=== PATIENT | female | born 1955 | race Hispanic/Latino ===

== ENCOUNTER 2017-05-18 15:23 | Observation (INO) | payer MEDICARE ==
[2017-05-18 15:51] LABS: #Basophils 0.1 thou/uL (0.0-0.2); #Eosinphils 0.3 thou/uL (0.0-0.7); #Lymphocytes 2.7 thou/uL (1.20-3.40); #Monocytes 0.7 thou/uL (0.11-0.59); #Neutrophils 6.7 thou/uL (1.40-6.50); %Basophils 0.5 % (0.0-1.0); %Eosinophils 2.7 % (0.0-10.0); %Lymphocytes 25.9 % (21.0-51.0); %Monocytes 6.8 % (0.0-10.0); Mean Platelet Volume 8.5 fL (7.4-10.4); Red Blood Cell (RBC) Count 3.84 mill/uL (4.20-5.40); White Blood Cell (WBC) Count 10.5 thou/uL (4.8-10.8)
[2017-05-18 16:05] LABS: ALT (SGPT) 14 U/L (8-55); AST (SGOT) 15 U/L (5-34); Alkaline Phosphatase 116 U/L (40-150); Anion Gap 14 mmol/L (10-20); BUN (Urea Nitrogen) 21 mg/dL (9.8-20.1); Bilirubin, Total 0.3 mg/dL (0.2-1.2); CK (CPK) 70 U/L (29-168); Calc. Creatinine Clearance 0 mL/min (70-130); Calcium 9.4 mg/dL (7.8-10.44); Carbon Dioxide 23 mmol/L (22-29); Chloride 109 mmol/L (98-107); Estimated GFR-MDRD 51; Globulin 3.1 g/dL (2.4-3.5); Lipase 50 U/L (8-78)
[2017-05-18 16:09] LABS: Troponin I Less than 0.010 ng/mL (< 0.028)
[2017-05-18] MEDS ORDERED: Ketorolac Tromethamine 30 MG/ML VIAL ONE (17:09)
--- NOTE | 2017-05-18 19:08 | RAD ---
AP CHEST: Indication: Left sided chest pain. Comparison: 08-27-16 IMPRESSION: No acute cardiopulmonary abnormality. The examination is not appreciably changed from a comparison s tudy. POS: [facility]
[2017-05-18 20:17] LABS: Troponin I Less than 0.010 ng/mL (< 0.028)
[2017-05-18] MEDS ORDERED: Ondansetron ODT 4 MG TAB SL PRN (20:36)
[2017-05-18] MEDS ORDERED: Ondansetron HCl/PF 4 MG/2 ML Vial IVP PRN (20:36)
[2017-05-18] MEDS ORDERED: traZODone HCl 50 MG TAB PO PRN (21:20)
[2017-05-18] MEDS ORDERED: Nitroglycerin 0.4 MG TAB (25 Tab Bottle) PO PRN (21:20)
[2017-05-18] MEDS ORDERED: Acetaminophen 500 MG TAB PO PRN (21:20)
[2017-05-18 21:25] VITALS: BMI 32.1
[2017-05-18] MEDS ORDERED: Diabetic Tussin 200 MG/10 ML UDCUP PO PRN (23:19)
--- NOTE | 2017-05-19 02:04 | ADD-HP ---
DATE OF ADMISSION: 05/18/2017 ATTENDING: Yuki Li D.O. RESIDENT: MD Dr. Erickson Angel's H and P reviewed and case discussed at length. Pertinent portions of the history and p hysical repeated by myself. I agree with her assessment and plan with following addendum: Ms. Maurice is a 62-year-old female with past medical history of hypertension and hyperlipid emia, who presented to the ER today with chest pain. Workup has shown EKG to be normal with the exc eption of a long QT, which was present on previous EKG as well as cardiac enzymes are negative x3. Physical exam is concerning only for costochondritis. Chest x-ray is unremarkable. During my exam, she does not endorse any further pain and is quite comfortable. On arrival, her blood pressures we re significantly elevated and they are improved now. Her most recent vital signs were 161/70. She has a HEART score of 4 and as such will be placed under observation and administered a stress test i n the morning to evaluate further for possible cardiac ischemia. Her blood pressure will be control led by restarting her home blood pressure medications as well as with IV p.r.n. medications as neede d. We will continue her aspirin and statin.
--- NOTE | 2017-05-19 04:26 | HP-2 ---
DATE OF ADMISSION: 05/18/2017 CODE STATUS: FULL CODE. PRIMARY CARE PHYSICIAN: Ed humphries. Jen PCP ATTENDING: Dr. Yuki Li RESIDENT: Dr. Radha Bentley, PGY1 HISTORIAN: The patient. CHIEF COMPLAINT: Chest pain, cough/fever and upper respiratory infection. HISTORY OF PRESENT ILLNESS: This is a 62-year-old female with past medical history of hypertension, hyperlipidemia, who presents with sharp chest pain that is localized to the right and left chest, does not radiate, not worsened by exertion, comes and goes and lasts for about 10 minutes, worsening over the past several months. The patient also endorses a cough and congestion and subjective fever since Friday. Endorses sputum that is green with a cough. ER: The patient was given Toradol. PAST MEDICAL HISTORY: Hypertension, hyperlipidemia, GERD, OA, and peptic ulcer disease. PAST SURGICAL HISTORY: Denies. ALLERGIES: PENICILLIN. MEDICATIONS: Losartan 25 mg daily, aspirin 81 mg daily, Protonix 40 mg daily, atorvastatin 40 mg daily. FAMILY HISTORY: Denies. SOCIAL HISTORY: Tobacco; [id number] smoking history. Alcohol, occasionally drinks at parties. Drugs: No drug use reported. REVIEW OF SYSTEMS: GENERAL: Denies weight changes, appetite, sleep changes. Endorses fevers. EYES: Denies vision changes and eye pain. RESPIRATORY: Endorses cough, congestion, and shortness of breath with exertion. CARDIOVASCULAR: Endorses chest pain. Denies palpitations, edema, paroxysmal nocturnal dyspnea and orthopnea. GI: Denies nausea, vomiting, diarrhea, constipation, abdominal pain. Denies GI bleeding. Denies melena. GENITOURINARY: Denies incontinence, dysuria. SKIN: Denies rashes or lesions. MUSCULOSKELETAL: Denies pain, tenderness and stiffness. NEURO: Denies weakness, numbness, and syncope. Endorses tingling in the bilateral lower extremities. PSYCH: Denies anxiety and depression. PHYSICAL EXAMINATION: VITAL SIGNS: Blood pressure 180/72, pulse of 68, respiratory rate 20, T-max 98.4, pulse ox 97% on room air. GENERAL: Alert and oriented x3, in no apparent distress, well-developed, well- nourished, appropriately interactive. EYES: Pupils equal, round, and reactive to light and accommodation. Extraocular muscles intact. Conjunctivae within normal limits. ENT: Nasal mucosa within normal limits. Oropharynx within normal limits. NECK: Supple, no lymphadenopathy, no thyromegaly. CARDIOVASCULAR: Regular rate and rhythm. Diastolic heart murmur 2/6. No gallops appreciated. Radial and pedal pulses 2+ bilaterally. RESPIRATORY: Normal effort, no retractions. Clear to auscultation bilaterally. SKIN: Warm, dry. No cyanosis or lesions. ABDOMEN: Soft, nontender to palpation. Positive bowel sounds. No masses or distention. EXTREMITIES: No clubbing, no cyanosis or edema. MUSCULOSKELETAL: Within normal limits. NEUROLOGIC: No focal deficits. Normal reflexes. Cranial nerves II-XII intact. GCS 15. PSYCHIATRIC: Appropriate. LABORATORY DATA: CBC, white blood cell count of 10.5, hemoglobin 14, hematocrit 40, platelets 212. Chemistry: Sodium 142, potassium 4, chloride 109, bicarb 23, BUN 21, creatinine 1.09, glucose 123, calcium 9.4, total protein 7, albumin 3.9, total bilirubin 0.3, AST 15, ALT 14, alkaline phosphatase 116. Negative for flu. CK 70, CK-MB 0.9, troponin 1.01, lipase 50. BNP 21.9. D-dimer is 0.41. EKG; QTC prolongation at 490, left axis deviation, poor R-wave progression. Chest x-ray, no acute cardiopulmonary abnormality. ASSESSMENT AND PLAN: A 62-year-old female with past medical history of hypertension, hyperlipidemia, who presents with chest pain, admitted for atypical chest pain, likely costochondritis, heart score of 4. 1. Chest pain, likely costochondritis with a heart score of 4. Scheduled stress test in the morning to rule out acute coronary syndrome. Initial EKG showed poor R-wave progression. We will trend troponins. Start patient on a statin and aspirin 81 mg daily. We will repeat labs; CBC and BMP in the morning and restart hypertension medications. Lipid profile has also been ordered. 2. Hypertension. Losartan 25 mg was started and hydralazine was provided for p.r.n. management of systolic blood pressures greater than 180. 3. Hyperlipidemia, atorvastatin 40 mg daily was started. Aspirin 81 mg daily was started. 4. Diastolic murmur heard best at the left upper sternal border. The patient sees a heart doctor for current murmur. 5. Upper respiratory tract infection consistent with cough, congestion and subjective fever. Symptomatic medication such as guaifenesin and DuoNebs were provided. DISPOSITION AND LENGTH OF STAY: 2 days. Symptomatic medications will be provided. History and physical exam as well as management were discussed with Dr. Yuki Li. ERIN
[2017-05-19 04:40] LABS: #Eosinphils 0.4 thou/uL (0.0-0.7); #Lymphocytes 2.3 thou/uL (1.20-3.40); #Monocytes 0.6 thou/uL (0.11-0.59); #Neutrophils 3.9 thou/uL (1.40-6.50); %Basophils 0.5 % (0.0-1.0); %Eosinophils 5.1 % (0.0-10.0); %Lymphocytes 31.2 % (21.0-51.0); %Monocytes 8.6 % (0.0-10.0); Hematocrit 36.2 % (36.0-47.0); Mean Platelet Volume 8.5 fL (7.4-10.4); Red Blood Cell (RBC) Count 3.49 mill/uL (4.20-5.40); White Blood Cell (WBC) Count 7.2 thou/uL (4.8-10.8)
[2017-05-19 05:15] LABS: Anion Gap 11 mmol/L (10-20); BUN (Urea Nitrogen) 21 mg/dL (9.8-20.1); Calc. Creatinine Clearance 84 mL/min (70-130); Calcium 9.4 mg/dL (7.8-10.44); Carbon Dioxide 25 mmol/L (22-29); Chloride 108 mmol/L (98-107); Estimated GFR-MDRD 84
--- NOTE | 2017-05-19 06:48 | PDOC.FM ---
- Subjective Subjective: Patient states that she had a good night. She no longer has chest pain. She states that nasal congestion and a cough are her biggest complaints. She states she is coughing up a small amount of green stuff. She denies, n/v/d. She states she has not had any fevers. She does admit to some pain when she coughs that is centered around her diaphragm. She also notes that she has had GERD in the past and the pain may be similar to that. She is awaiting a stress test this AM. - Objective Vital Signs & Weight: Vital Signs (12 hours) Temp Pulse Resp BP BP Pulse Ox 05/19/17 04:18 98.6 F 70 16 133/60 05/19/17 03:20 66 05/18/17 22:51 16 96 05/18/17 21:20 95 05/18/17 20:20 98.8 F 66 16 161/70 H 95 Weight Weight 62.823 kg I&O: 05/17/17 05/18/17 05/19/17 06:59 06:59 06:59 Intake Total 720 Balance 720 Result Diagrams: 05/19/17 04:19 05/19/17 04:19 <Alexsander Lee - Last Filed: 05/19/17 11:15> - Objective Vital Signs & Weight: Vital Signs (12 hours) Temp Pulse Resp BP BP Pulse Ox 05/19/17 11:45 97.5 F L 60 16 143/65 H 96 05/19/17 08:00 97.7 F 65 18 05/19/17 07:45 97.7 F 65 18 133/63 99 05/19/17 04:18 98.6 F 70 16 133/60 05/19/17 03:20 66 Weight Weight 62.823 kg I&O: 05/18/17 05/19/17 05/20/17 06:59 06:59 06:59 Intake Total 720 Output Total 200 Balance 720 -200 Result Diagrams: 05/19/17 04:19 05/19/17 04:19 <Hector Hinojosa - Last Filed: 05/19/17 12:06> Phys Exam - Physical Examination HEENT: moist MMs, oral pharynx no lesions Neck: no nodes, supple Respiratory: no wheezing, clear to auscultation bilateral Cardiovascular: RRR Diastolic murmur present Gastrointestinal: soft, non-tender, no distention, positive bowel sounds Musculoskeletal: no edema, pulses present Neurological: non-focal, moves all 4 limbs Psychiatric: normal affect, A&O x 3 Skin: no rash <Alexsander Lee - Last Filed: 05/19/17 11:15> Dx/Plan (1) Atypical chest pain Code(s): R07.89 - OTHER CHEST PAIN Status: Acute Plan: -Likely secondary to costochondritis -HEART score 4 -Troponins negative -EKG: QTC prolongation 490, Left [place] deviation, Poor R-wave progression -CXR negative -Stress test 05/19 -Aspirin (2) Diastolic murmur Code(s): I38 - ENDOCARDITIS, VALVE UNSPECIFIED Status: Acute Plan: She is seen for Cardiology as outpatient for this. Will monitor for symptoms. (3) Hyperlipidemia Code(s): E78.5 - HYPERLIPIDEMIA, UNSPECIFIED Status: Acute Plan: Continue Atorvastatin (4) Hypertension Code(s): I10 - ESSENTIAL (PRIMARY) HYPERTENSION Status: Acute Plan: -Continue Losartan -Hydralazine PRN for SBP greater than 180 (5) URI (upper respiratory infection) Code(s): J06.9 - ACUTE UPPER RESPIRATORY INFECTION, UNSPECIFIED Status: Acute Plan: -Likely viral, 4 day history -Afebrile -Guaifenesin -Pneumovax (6) GERD (gastroesophageal reflux disease) Code(s): K21.9 - GASTRO-ESOPHAGEAL REFLUX DISEASE WITHOUT ESOPHAGITIS Status: Acute Plan: -Protonix - Plan Plan: Patient is awaiting Cardiac Stress test and discharge planning will be made after that test is completed. <Alexsander Lee - Last Filed: 05/19/17 11:15> Attending Addendum - Attending Addendum I personally evaluated the patient and discussed the management with Dr. Lee. I agree with the History, Examination, Assessment and Plan documented above with any addition or exceptions noted below. Patient admitted for what seemed to be costochondritis on admission, but with risk factors, decision was made for stress testing. We have gotten word that patient may have had chest pain during test with EKG changes, and Dr. Summers was evaluating patient. Cardiology consult has been placed. If true, anticipate further interventions, possibly PCI later today. Will await further recommendations from cardiology, but does not appear to be going home today. Trops negative, blood pressure ok at the time of our visit. <Hector Hinojosa - Last Filed: 05/19/17 12:06>
[2017-05-19] MEDS ORDERED: Bupropion 150 MG XL TAB PO SCH (09:00)
[2017-05-19] MEDS ORDERED: Bisacodyl 5 MG TAB PO SCH (09:00)
[2017-05-19] MEDS ORDERED: Atorvastatin Calcium 40 MG TAB PO SCH (09:00)
[2017-05-19] MEDS ORDERED: Losartan Potassium 25 MG TAB PO SCH (09:00)
[2017-05-19 11:46] VITALS: TEMP 97.5
[2017-05-19] MEDS ORDERED: Midazolam HCl 2 mg/2 ml Vial ONE (14:16)
[2017-05-19] MEDS ORDERED: Fentanyl 100 MCG/2 ML VIAL ONE (14:16)
[2017-05-19] MEDS ORDERED: Heparin 10,000 UNITS/1 ML VIAL ONE (14:16)
[2017-05-19] MEDS ORDERED: Nitroglycerin 100MG/250ML BOT 250 ML ONE (14:16)
--- NOTE | 2017-05-19 14:46 | NM ---
CARDIAC SPECT AT REST: HISTORY: A 62-year-old female with chest pain and risk factors for coronary artery disease. TECHNIQUE: A rest-only myocardial perfusion scan was performed the intravenous administration of 9 mCi Techneti um 99m-sestamibi. FINDINGS: Fairly homogeneous tracer distribution is seen in the myocardial segments on the rest images. IMPRESSION: Normal myocardial perfusion at rest. POS: [facility]
[2017-05-19] MEDS ORDERED: Ondansetron HCl/PF 4 MG/2 ML Vial ONE (14:55)
[2017-05-19] MEDS ORDERED: Nitroglycerin 0.4 MG TAB (25 Tab Bottle) SL PRN (16:05)
[2017-05-19] MEDS ORDERED: Acetaminophen/Codeine 30-300mg Tablet PO PRN ×2 (16:05)
[2017-05-19] MEDS ORDERED: traMADol HCl 50 MG TAB PO PRN (16:05)
[2017-05-19] MEDS ORDERED: Sodium Chloride 0.9% 200 ML IV SCH (16:15)
[2017-05-19 17:08] VITALS: BP 99/52
[2017-05-19] MEDS ORDERED: Iopamidol 370 76% 100 ML VIAL ONE (17:12)
--- NOTE | 2017-05-19 21:49 | CON ---
DATE OF CONSULTATION: 05/19/2017 REFERRING PHYSICIAN: Yuki Li D.O. REASON FOR CONSULTATION: Chest pain. HISTORY OF PRESENT ILLNESS: Ms. Maurice is a 62-year-old female, who presented to the emerg ency department complaining of sharp chest pain located at the right and left chest, it has not radi ated, it has not worsened by exertion, it comes and goes, lasts for about 10 minutes. She has had a cough and congestion with subjective fever since Friday, her cough is productive of green sputum. Over the course of her admission, stress test was ordered but due to ongoing chest pain and changes on her EKG with nonspecific T-wave inversions in inferior leads compared to her admission study, the stress test was canceled and recommendations were made to evaluate her anatomy directly with heart catheterization. PAST MEDICAL HISTORY: 1. Hypertension. 2. Dyslipidemia. 3. Gastroesophageal reflux disease. 4. Peptic ulcer disease. PAST SURGICAL HISTORY: Negative. ALLERGIES: PENICILLIN. SOCIAL HISTORY: She has a 63-lxiu-veow smoking history. She denies significant alcohol intake. De nies illicit drugs. FAMILY HISTORY: Negative with respect to premature atherosclerosis. CURRENT MEDICATIONS: 1. Losartan 25 mg daily. 2. Aspirin 81 mg daily. 3. Protonix 40 mg daily. 4. Lipitor 40 mg daily. REVIEW OF SYSTEMS: As per history of present illness. Remainder of 12-system review is negative. PHYSICAL EXAMINATION: VITAL SIGNS: Blood pressure is 143/65, pulse 60 and regular, respiratory rate 16 and nonlabored, te mp 97.5, oxygen saturation 96% on room air. GENERAL: This is a well-developed, well-nourished 62-year-old female in no acute distress. She is alert and oriented x4. She answers questions appropriately. HEENT: The head was atraumatic, normocephalic. Pupils are equally round and reactive. Sclerae and conjunctivae are clear. There are no oral lesions. NECK: Supple. No JVD, thyromegaly, or carotid bruits. CHEST: Symmetrical inspiration and expiration. HEART: Regular rate and rhythm, no murmur, S3 or S4. PMI is nondisplaced, not enlarged. LUNGS: Clear to auscultation in all chong. No adventitious sounds appreciated. ABDOMEN: Soft, nontender, nondistended, without mass or organomegaly. Bowel sounds are present in all 4 quadrants. No flank bruits auscultated. EXTREMITIES: 2+ pulses noted bilaterally. Lower extremity strength 5/5 bilaterally. There is no c lubbing, cyanosis or edema. NEUROLOGIC: Grossly intact with no focal motor deficits appreciated. DATABASE: EKG reveals sinus rhythm with dynamic ST changes in the inferior leads. These T-wave inv ersions are nonspecific and did not involve significant ST-segment depression, they do differ signif icantly; however, from the admission EKG with ongoing chest pain. LABORATORY DATA: CBC reveals white count of 7, H\T\H 12 and 36, and platelet count 188,000. Differ ential white blood cells normal. Red cell indices are macrocytic with MCV of 104. Chemistries: Electrolytes are normal. BUN and creatinine of 21 and 1.0. GFR is estimated at 51, g lucose 123. LFTs are normal. Serial cardiac enzymes are normal. Coagulation studies are normal. ASSESSMENT: 1. Persistent atypical chest pain. 2. Abnormal ECG changes suspicious for ischemia. 3. Hypertension. 4. Dyslipidemia. 5. Chronic kidney disease stage III. RECOMMENDATIONS: 1. From a cardiac standpoint, she is stable, but with ongoing chest pain and dynamic T-wave changes on her EKG. We have recommended more definitive invasive approach to evaluation of her coronary an atomy and risks, benefits and possible complications involving heart catheterization and possible in tervention have been discussed with the patient at the bedside along with her family. She agrees to proceed. We will get this scheduled later in the day. 2. We will make further recommendations based on results of her catheterization. I appreciate the opportunity to participate.
--- NOTE | 2017-05-19 23:50 | DIS-2 ---
DATE OF ADMISSION: 05/18/2017 DATE OF DISCHARGE: 05/19/2017 RESIDENT: Alexsander Lee MD. ADMITTING ATTENDING: Yuki Li D.O. DISCHARGE ATTENDING: Hector Hinojosa MD CONSULTATIONS: Cardiology Dr. Joseph PROCEDURES: A cardiac stress test and a cardiac catheterization. PRIMARY DIAGNOSES: 1. Atypical chest pain. 2. Diastolic murmur. 3. Hyperlipidemia. 4. Hypertension. 5. Gastroesophageal reflux disease. 6. Upper respiratory infection. DISCHARGE MEDICATIONS: Losartan potassium 25 mg, aspirin 81 mg, atorvastatin 40 mg, pantoprazole 40 mg, [id number] ethyl esters 2 g. HISTORY OF PRESENT ILLNESS AND HOSPITAL COURSE: This is a 62-year-old female with past medical history of hypertension, hyperlipidemia, who presents with sharp left chest pain that is localized to the right and left chest. It does not radiate, not worsened by exertion, comes and goes and lasts for about 10 minutes, worsening over the past several months. The patient also endorses a cough and congestion and subjective fever since Friday. She endorses sputum that is green with a cough. The next day, the patient said she had a good night , she no longer had the chest pain. She does admit the nasal congestion and cough are her biggest complaints. She is coughing up a small amount of green sputum. Denied any nausea, vomiting, or diarrhea. No fevers. She does admit to some pain when she coughs around her diaphragm. She also notes that she has GERD in the past and pain may be similar to that. She did go for a stress test this morning and the stress test showed some EKG changes, so she was taken to the cardiac catheterization lab where it showed that she had a left ventricle function with normal coronary arteries and no CAD was found. She tolerated the procedure well and she was able to be discharged after a short recovery. She had some notable labs of troponins less than 0.01 x3, a D-dimer of 0.41, and an MCV of 104. She recovered in her room for a couple of hours to ensure she didn' t have any complications or bleeding from her catheterization site. She was discharged in good condition. DISPOSITION: Stable. DISCHARGE INSTRUCTIONS: 1. Location: She will be discharged home into her own care. 2. Diet: Will be a heart-healthy diet. 3. Activities: With no restrictions as tolerated. 4. Follow up: Will be within 1 week with her primary care provider [facility]. We wish her the best of luck and if she does have any other symptoms of cardiac pathology, she needs to be reevaluated. ERIN
== END 2017-05-19 18:24 | disposition home or self-care (01) ==
LOC: ERS 15:23 → 2SW 19:15
PROVIDERS: ADMIT Family Medicine; ATTEND Family Medicine
DX: R07.89 Other chest pain (principal); I38 Endocarditis, valve unspecified; E78.5 Hyperlipidemia, unspecified; I10 Essential (primary) hypertension; K21.9 Gastro-esophageal reflux disease without esophagitis; J06.9 Acute upper respiratory infection, unspecified; M19.90 Unspecified osteoarthritis, unspecified site; Z88.0 Allergy status to penicillin; Z79.899 Other long term (current) drug therapy
CPT/HCPCS: 71010; 78451; 80048; 80053; 82550; 82553; 83690; 83880; 84484 ×2; 85025 ×2; 85379; 87804 ×2; 93005; 93458; 94760 ×2; 96372; 99285; A9500; C1769; G0378; 36415; 36416; 99152; A4216; J1644; J1885; J2250; J2405; J3010

== ENCOUNTER 2017-12-11 11:20 | Outpatient (CLI) | payer MEDICARE | END 2017-12-11 11:21 | disposition home or self-care (01) | LOC: BICRAD 11:20 | PROVIDERS: ATTEND Internal Medicine Gastroenterology | DX: R10.13 Epigastric pain (principal); Z90.49 Acquired absence of other specified parts of digestive tract | CPT/HCPCS: 74018 ==

== ENCOUNTER 2018-03-12 09:19 | Outpatient (CLI) | payer MEDICARE ==
--- NOTE | 2018-03-12 10:54 | MRI ---
MRI OF THE LUMBAR SPINE WITHOUT CONTRAST: INDICATION: Lumbar disk degeneration. COMPARISON: None. TECHNIQUE: Multiplanar, multisequence MR images were obtained in the lumbar spine without contrast. The visuali zed retroperitoneum demonstrates mild T2 hyperintense, T1 hypointense lesions involving both kidneys suspicious for small cysts. There is a retroaortic left renal vein. No enlarged lymph nodes are dominic dent. FINDINGS: No acute fracture is evident. The conus is seen to terminate at approximately T12. At L5-S1, there is a mild broad-based bulge without appreciable central canal or neural foraminal julian rowing. At L4-5, there is a broad-based bulge with facet hypertrophy without appreciable central canal or ara ral foraminal narrowing. At L3-4, there is no appreciable central canal or neural foraminal narrowing. At L2-3, there is a broad-based bulge without appreciable central canal or neural foraminal narrowing . At L1-L2, there is a mild broad-based bulge without appreciable central or neural foraminal narrowing . At T12-L1, there is no appreciable central canal or neural foraminal narrowing. IMPRESSION: 1. Multilevel mild spondylosis of the lumbar spine without appreciable central canal or neural татьяна inal narrowing. 2. T2 hyperintensity, T1 hypodense lesion involving both kidneys are suspicious for cysts. These ar e better seen on a CT examination in 2014 which demonstrated bilateral simple cysts. POS: [facility]
--- NOTE | 2018-03-12 12:02 | RAD ---
5 VIEWS LUMBOSACRAL SPINE: Date: 03/12/18 COMPARISON: MRI lumbar spine dated 03/12/18. HISTORY: Lumbar disc degeneration. FINDINGS: AP, lateral, coned-down, and flexion/extension views of lumbar spine performed. The vertebral bodies demonstrate normal height and alignment without fracture or subluxation. Alignment is unchanged with flexion and extension. Very small anterior osteophytes are seen in the mid lumbar spine. IMPRESSION: Unchanged alignment of the lumbar spine with bending. POS: [facility]
== END 2018-03-12 09:20 | disposition home or self-care (01) ==
LOC: MRI 09:19
PROVIDERS: ATTEND Neurological Surgery
DX: M51.36 Other intervertebral disc degeneration, lumbar region (principal); M47.896 Other spondylosis, lumbar region; N28.9 Disorder of kidney and ureter, unspecified
CPT/HCPCS: 72120; 72148

== ENCOUNTER 2018-05-25 09:11 | Outpatient (CLI) | payer MEDICARE ==
[2018-05-25 10:35] LABS: Mean Corpuscular HGB CONC 33.8 g/dL (32.0-36.0); Mean Corpuscular Hemoglobin 34.6 pg (27.0-31.0); Mean Platelet Volume 8.7 fL (7.4-10.4); Platelet Count 218 thou/uL (130-400); RBC Distribution Width 11.7 % (11.5-14.5); Red Blood Cell (RBC) Count 4.05 mill/uL (4.20-5.40); White Blood Cell (WBC) Count 5.6 thou/uL (4.8-10.8)
[2018-05-25 10:59] LABS: Anion Gap 9 mmol/L (10-20); BUN (Urea Nitrogen) 29 mg/dL (9.8-20.1); Calc. Creatinine Clearance 0 mL/min (70-130); Calcium 9.3 mg/dL (7.8-10.44); Carbon Dioxide 26 mmol/L (23-31); Chloride 110 mmol/L (98-107); Estimated GFR-MDRD 77; Glucose 95 mg/dL (80-115); Potassium 3.9 mmol/L (3.5-5.1); Sodium 141 mmol/L (136-145)
== END 2018-05-25 09:12 | disposition home or self-care (01) ==
LOC: LABBT 09:11
PROVIDERS: ATTEND Neurological Surgery
DX: Z01.818 Encounter for other preprocedural examination (principal); M43.16 Spondylolisthesis, lumbar region
CPT/HCPCS: 80048; 85027; 87081; 93005; 93010

== ENCOUNTER 2018-05-25 09:30 | Inpatient (IN) | payer MEDICARE ==
[2018-05-25 09:37] VITALS: BMI 35.1
[2018-05-27] MEDS ORDERED: Levofloxacin 500 mg/D5W 100 ml Premix Bag ONE (07:39)
[2018-05-27] MEDS ORDERED: Clindamycin/D5W 900 mg/50 ml Premix Bag ONE (07:40)
[2018-05-27] MEDS ORDERED: Sodium Chloride 0.9% 10 ML ONE (09:35)
[2018-05-27] MEDS ORDERED: Midazolam HCl 2 mg/2 ml Vial ONE (09:39)
[2018-05-27] MEDS ORDERED: Fentanyl 100 MCG/2 ML VIAL ONE ×4 (09:48→13:01)
[2018-05-27] MEDS ORDERED: Vecuronium 10 MG VIAL ONE (10:59)
[2018-05-27] MEDS ORDERED: Dexamethasone 20 MG/5 ML VIAL ONE (10:59)
[2018-05-27] MEDS ORDERED: Ketorolac Tromethamine 30 MG/ML VIAL ONE (10:59)
[2018-05-27] MEDS ORDERED: PROPOFOL 200 MG/20 ML VIAL ONE (10:59)
[2018-05-27] MEDS ORDERED: Lidocaine 1% PF 5 ML VIAL ONE (10:59)
[2018-05-27] MEDS ORDERED: Ondansetron HCl/PF 4 MG/2 ML Vial ONE (10:59)
[2018-05-27] MEDS ORDERED: Glycopyrrolate 0.2 MG/ML 5 ML SYRINGE ONE (10:59)
[2018-05-27] MEDS ORDERED: Promethazine HCl 25 MG/ML VIAL SLOW IVP PRN (11:34)
[2018-05-27] MEDS ORDERED: Ondansetron HCl/PF 4 MG/2 ML Vial IVP PRN (11:34)
[2018-05-27] MEDS ORDERED: Promethazine HCl 25 MG/ML VIAL IM PRN ×2 (11:34→14:33)
[2018-05-27] MEDS ORDERED: Morphine 4 MG/ML VIAL ONE (13:02)
[2018-05-27] MEDS ORDERED: Promethazine HCl 12.5 MG SUPP PR PRN (14:33)
[2018-05-27] MEDS ORDERED: HYDROcodone/Acetaminophen 10/325 mg Tablet PO PRN (14:33)
[2018-05-27] MEDS ORDERED: Milk Of Magnesia 30 ML UDCUP PO PRN (14:33)
[2018-05-27] MEDS ORDERED: Ondansetron HCl/PF 4 MG/2 ML Vial IM PRN (14:33)
[2018-05-27] MEDS ORDERED: diphenhydrAMINE 50 MG/ML VIAL IVP PRN (14:33)
[2018-05-27] MEDS ORDERED: Promethazine 25 MG TAB PO PRN (14:33)
[2018-05-27] MEDS ORDERED: diphenhydrAMINE 25 MG CAP PO PRN (14:33)
[2018-05-27] MEDS ORDERED: Mag-Al 1200 mg/1200 mg/30 ML UDCUP PO PRN (14:33)
[2018-05-27] MEDS ORDERED: traMADol HCl 50 MG TAB PO PRN ×2 (14:33)
[2018-05-27] MEDS: Morphine 4 MG/ML VIAL IV PRN ×2 (14:40→21:52)
[2018-05-27] MEDS: Sodium Chloride 0.9% 1,000 ML IV SCH (14:42)
[2018-05-27] MEDS: tiZANidine HCl 4 MG TAB PO PRN (15:41)
[2018-05-27] MEDS: HYDROcodone/Acetaminophen 10/325 mg Tablet PO PRN ×2 (15:41→19:46)
[2018-05-27] MEDS: Clindamycin/D5W 900 MG in Premix Bag 1 BAG IVPB SCH ×2 (15:45→23:24)
--- NOTE | 2018-05-27 16:02 | OP ---
DATE OF PROCEDURE: 05/27/2018 SURGEON: Stoney England M.D. [employer]ATION MANAGER: Leo Dennis PROCEDURE: Right L5-S1 laminectomy, facetectomy, foraminotomy, interbody arthrodesis, intravertebral biomechanical device, local morselized autograft, demineralized bone matrix, posterior lateral arthr odesis, and pedicle screw instrumentation L5-S1. PROCEDURE IN DETAIL: The patient was brought to the operating room and intubated. She was rolled in the prone position on gel-filled chest rolls. Incision made exposing L5 and S1 and our level was co nfirmed by x-ray. We performed a right L5-S1 laminectomy, facetectomy, and foraminotomy, completely decompressing right L5 and right S1. The disc itself was incised and debrided and the bony endplates decorticated for the purpose of arthrodesis. An appropriately sized intravertebral biomechanical PE EK device was brought into the field, filled with demineralized bone matrix, local morselized autogra ft, and tapped into place securely at L5-S1. Next, pedicle screws were placed at right L5 and right S1 using lateral fluoroscopic guidance and the positioning was confirmed with rotational x-ray. The S1 screw was intentionally placed bicortically. The wound was then extensively irrigated, immaculate hemostasis was secured. A combination of demineralized bone matrix, local morselized autograft was laid over the left laminar and posterolateral surfaces of arthrodesis. Vancomycin powder was a pplied and the wound was then closed in anatomic layers.
[2018-05-27] MEDS: Atorvastatin Calcium 40 MG TAB PO SCH (19:52)
[2018-05-28] MEDS: HYDROcodone/Acetaminophen 10/325 mg Tablet PO PRN ×5 (00:01→21:41)
[2018-05-28] MEDS: Sodium Chloride 0.9% 1,000 ML IV SCH ×2 (02:53→18:36)
[2018-05-28] MEDS: tiZANidine HCl 4 MG TAB PO PRN (08:50)
[2018-05-28] MEDS ORDERED: LINZESS 290 MCG CAP PO SCH (09:00)
[2018-05-28] MEDS: Losartan 25 MG TAB PO SCH (10:47)
[2018-05-28] MEDS: Atorvastatin Calcium 40 MG TAB PO SCH (20:33)
[2018-05-29] MEDS: HYDROcodone/Acetaminophen 10/325 mg Tablet PO PRN ×2 (04:19→08:12)
[2018-05-29] MEDS: Sodium Chloride 0.9% 1,000 ML IV SCH (04:39)
[2018-05-29 07:52] VITALS: BP 119/61; TEMP 98.6
[2018-05-29] MEDS: Losartan 25 MG TAB PO SCH (08:13)
== END 2018-05-29 10:58 | disposition home or self-care (01) | DRG 460 ==
LOC: SURG A 05-27 06:10 → EDSTATUS 05-27 09:30 → SURG B 05-27 13:46
PROVIDERS: ADMIT Neurological Surgery; ATTEND Neurological Surgery
PROC: 0SG00AJ Fusion of Lumbar Vertebral Joint with Interbody Fusion Device, Posterior Approach, Anterior Column, Open Approach (ICD-10-PCS; principal; 2018-05-27)
DX: M43.16 Spondylolisthesis, lumbar region (principal)
CPT/HCPCS: 76001; 80048; 85027; 87081; 93005; 93010; A4216; C1713; C1768; G8978-GP-CK; G8979-GP-CI; J1100; J1885; J1956; J2001; J2250; J2270; J2405; J2704; J3010; J3370; J3490

== ENCOUNTER 2018-06-11 10:56 | Outpatient (CLI) | payer MEDICARE ==
--- NOTE | 2018-06-11 12:06 | RAD ---
LUMBAR SPINE TWO VIEWS: History: 63-year-old female, M43.16, follow up surgery. Comparison: 03-12-18 FINDINGS: Pedicle screws are noted on the right side at L5-S1 with intradiscal prosthesis. Mild generalized spo ndylosis. No significant malalignment. IMPRESSION: Right sided pedicle screw placement changes at L5-S1 with intradiscal prosthesis. No significant abida lignment. Generalized spondylosis. POS: [facility]
== END 2018-06-11 10:57 | disposition home or self-care (01) ==
LOC: TBSIIMAG 10:56
PROVIDERS: ATTEND Neurological Surgery
DX: M43.16 Spondylolisthesis, lumbar region (principal); Z98.890 Other specified postprocedural states
CPT/HCPCS: 72100

== ENCOUNTER 2018-07-01 15:26 | Outpatient (CLI) | payer MEDICARE ==
--- NOTE | 2018-07-01 16:19 | RAD ---
2-3 VIEW LUMBAR SPINE SERIES: 07/01/18 COMPARISON: 06/11/18 INDICATION: Back pain. Prior low back surgery, followup. FINDINGS: There is right sided posterior metallic fusion of L5 and S1 with right sided pedicle screws and verti nolan interconnecting yulissa. Intradiscal space device at L5-S1 level is present to the right of midline. Alignment of the lumbar spine is stable. No interval height loss of vertebral bodies. Vascular calcif ication is seen. IMPRESSION: Stable appearing postoperative lumbar spine. POS: [facility]
== END 2018-07-01 15:27 | disposition home or self-care (01) ==
LOC: TBSIIMAG 15:26
PROVIDERS: ATTEND Physician Assistant
DX: M54.9 Dorsalgia, unspecified (principal); Z98.890 Other specified postprocedural states
CPT/HCPCS: 72100

== ENCOUNTER 2018-07-02 10:33 | Outpatient (CLI) | payer MEDICARE ==
--- NOTE | 2018-07-02 13:56 | CT ---
NONCONTRAST CT LUMBAR SPINE: Date: 07-02-18 History: Lumbar spondylolisthesis. Back pain that radiates to the right leg. History of prior back evans rgery. Comparison: MRI lumbar spine, 03-12-18 FINDINGS: There are nonobstructing right renal calculi with largest calculus in the inferior pole measuring 5 m m. Subcentimeter too small to characterize hypodense lesion is seen in the superior pole right kidney . Vascular calcifications are seen in the abdominal aorta involving the iliac arteries. No fracture or subluxation is seen involving the lumbar spine. Post-surgical changes related to posterior fusion at the lumbosacral junction are present with unilat eral right sided pedicular screws and posterior yulissa. The screw within the right L5 pedicle extends la teral to the lateral margin of the right L5 vertebral body with the pedicular screw in the S1 vertebr al body extending through the anterior cortex of the sacrum. Intradiscal prosthesis is in noted in pl kathy in the right aspect of the intervertebral disc space. One of the posterior markers does extend pa rtially into the anterior aspect of the right neural foramen laterally. There is graft material seen posteriorly on the left at the L5-S1 level. There is evidence of a right laminectomy defect with decr eased density material seen within the region of the laminectomy defect and extending to the level of the right neural foramen likely related to post-operative changes. Scar formation cannot be entirely excluded. There is a mild disc osteophyte complex present. There is no significant narrowing of the central spinal canal. There is only minimal encroachment of the left neuroforamen. T12-L1: There is mild disc osteophyte complex. Central spinal canal and neural foramina are patent. L1-2: There is mild broad based disc osteophyte with mild effacement of the ventral aspect of the the nolan sac. There is no narrowing of the central spinal canal, neural foramina are patent. This is simil ar to prior MRI exam. L2-3: There is mild broad based disc osteophyte complex with mild generalized narrowing of the centra l spinal canal. Neural foramina are patent. L3-4: There is mild disc osteophyte complex which results in mild narrowing of the central spinal can al. The neural foramina are patent. L4-5: There is mild disc osteophyte complex and mild facet degenerative change as well as suggestion of mild ligamentous thickening. These findings do result in mild to moderate narrowing of the central spinal canal. The right neural foramen is patent but there is mild left sided neural foraminal narro wing. IMPRESSION: 1. Post-surgical changes of the lumbosacral junction related to posterior fusion. Unilateral right si ded pedicular screws are noted in place. The right sided pedicular screw in L5 extends through the re gion of a portion of the transverse process and pedicle but extends just lateral to the vertebral bod y. The screw within the sacrum extends just anterior to the most anterior margin of the sacrum. In ad dition, there has been migration of the disc prosthesis laterally on the right, where a portion of th e disc marker extends into the lateral aspect of the right neural foramen. 2. Low density material seen in the region of the right laminotomy defect and extending to the level of the right neural foramen which may be related to post-operative changes. Scar tissue in this regio n cannot be entirely excluded. This area of density is just medial to the level of the pedicular scre w. The right L5 nerve root within the neural foramen is unable to be delineated. 3. Mild degenerative changes in the remainder of the lumbar spine, not significantly progressed when compared to the MRI exam on 03-12-18. 4. Nonobstructing right renal calculi. POS: [facility]
== END 2018-07-02 10:34 | disposition home or self-care (01) ==
LOC: TBSIIMAG 10:33
PROVIDERS: ATTEND Neurological Surgery
DX: M43.16 Spondylolisthesis, lumbar region (principal); M47.896 Other spondylosis, lumbar region; N20.0 Calculus of kidney; Z98.890 Other specified postprocedural states
CPT/HCPCS: 72131

== ENCOUNTER 2018-07-27 06:50 | Inpatient (IN) | payer MEDICARE ==
[2018-07-24 12:34] VITALS: BMI 33.6
[2018-07-27] MEDS ORDERED: Levofloxacin 500 mg/D5W 100 ml Premix Bag ONE (07:37)
[2018-07-27] MEDS ORDERED: Clindamycin/D5W 900 mg/50 ml Premix Bag ONE (07:37)
[2018-07-27 07:47] LABS: #Eosinphils 0.2 thou/uL (0.0-0.7); #Lymphocytes 2.6 thou/uL (1.20-3.40); #Monocytes 0.6 thou/uL (0.11-0.59); #Neutrophils 3.1 thou/uL (1.40-6.50); %Basophils 0.1 % (0.0-1.0); %Eosinophils 3.1 % (0.0-10.0); %Lymphocytes 39.8 % (21.0-51.0); %Neutrophils 48.1 % (42.0-75.0); Hemoglobin 13.9 g/dL (12.0-16.0); Mean Corpuscular HGB CONC 34.9 g/dL (32.0-36.0); Mean Corpuscular Hemoglobin 34.3 pg (27.0-31.0); Mean Corpuscular Volume 98.2 fL (78.0-98.0); Mean Platelet Volume 8.7 fL (7.4-10.4); Platelet Count 231 thou/uL (130-400); RBC Distribution Width 11.8 % (11.5-14.5); Red Blood Cell (RBC) Count 4.07 mill/uL (4.20-5.40); White Blood Cell (WBC) Count 6.5 thou/uL (4.8-10.8)
[2018-07-27 08:06] LABS: Anion Gap 12 mmol/L (10-20); BUN (Urea Nitrogen) 20 mg/dL (9.8-20.1); Calc. Creatinine Clearance 91 mL/min (70-130); Calcium 9.9 mg/dL (7.8-10.44); Carbon Dioxide 23 mmol/L (23-31); Chloride 109 mmol/L (98-107); Estimated GFR-MDRD 85; Glucose 102 mg/dL (80-115); Potassium 3.9 mmol/L (3.5-5.1); Sodium 140 mmol/L (136-145)
[2018-07-27] MEDS ORDERED: Midazolam HCl 2 mg/2 ml Vial ONE ×2 (08:46→09:25)
[2018-07-27] MEDS ORDERED: Fentanyl 250 MCG/5 ML VIAL ONE (09:25)
[2018-07-27] MEDS ORDERED: Ondansetron HCl/PF 4 MG/2 ML Vial IVP PRN (10:57)
[2018-07-27] MEDS ORDERED: Promethazine HCl 25 MG/ML VIAL SLOW IVP PRN (10:57)
[2018-07-27] MEDS ORDERED: Promethazine HCl 25 MG/ML VIAL IM PRN ×2 (10:57→15:31)
[2018-07-27] MEDS ORDERED: Fentanyl 100 MCG/2 ML VIAL ONE (11:03)
[2018-07-27] MEDS ORDERED: HYDROmorphone 2 MG/ML VIAL ONE (11:28)
[2018-07-27] MEDS ORDERED: Morphine 4 MG/ML VIAL ONE ×2 (11:52→12:39)
[2018-07-27] MEDS ORDERED: Morphine 2 MG/ML SYRINGE ONE (13:49)
[2018-07-27] MEDS ORDERED: ePHEDrine/0.9% NaCl/PF SYRINGE 50 mg/10 ml ONE (13:54)
[2018-07-27] MEDS ORDERED: Glycopyrrolate 0.2 MG/ML 5 ML SYRINGE ONE (13:54)
[2018-07-27] MEDS ORDERED: PHENYLEPHRINE-NS 100 MCG/ML 10 ML SYRINGE ONE (13:54)
[2018-07-27] MEDS ORDERED: Ondansetron PF 4 MG/2 ML Vial ONE (13:54)
[2018-07-27] MEDS ORDERED: PROPOFOL 200 MG/20 ML VIAL ONE (13:54)
[2018-07-27] MEDS ORDERED: Dexamethasone 20 MG/5 ML VIAL ONE (13:54)
[2018-07-27] MEDS ORDERED: Lidocaine 1% PF 5 ML VIAL ONE (13:54)
[2018-07-27] MEDS ORDERED: Promethazine 25 MG TAB PO PRN (15:31)
[2018-07-27] MEDS ORDERED: Mag-Al 1200 mg/1200 mg/30 ML UDCUP PO PRN (15:31)
[2018-07-27] MEDS ORDERED: HYDROcodone/Acetaminophen 10/325 mg Tablet PO PRN (15:31)
[2018-07-27] MEDS ORDERED: diphenhydrAMINE 50 MG/ML VIAL IVP PRN (15:31)
[2018-07-27] MEDS ORDERED: Ondansetron PF 4 MG/2 ML Vial IVP PRN (15:31)
[2018-07-27] MEDS ORDERED: Milk Of Magnesia 30 ML UDCUP PO PRN (15:31)
[2018-07-27] MEDS ORDERED: diphenhydrAMINE 25 MG CAP PO PRN (15:31)
[2018-07-27] MEDS ORDERED: traMADol HCl 50 MG TAB PO PRN ×2 (15:31)
[2018-07-27] MEDS ORDERED: Promethazine HCl 12.5 MG SUPP PR PRN (15:31)
[2018-07-27] MEDS ORDERED: Morphine 2 MG/ML SYRINGE SLOW IVP PRN (15:38)
[2018-07-27] MEDS: HYDROcodone/Acetaminophen 10/325 mg Tablet PO PRN ×2 (15:56→21:09)
[2018-07-27] MEDS: Morphine 4 MG/ML VIAL SLOW IVP PRN (15:57)
[2018-07-27] MEDS: Clindamycin/D5W 900 MG in Premix Bag 1 BAG IVPB SCH (16:08)
[2018-07-27] MEDS: Sodium Chloride 0.9% 1,000 ML IV SCH (16:09)
[2018-07-27] MEDS: Atorvastatin Calcium 40 MG TAB PO SCH (21:09)
[2018-07-28] MEDS: Clindamycin/D5W 900 MG in Premix Bag 1 BAG IVPB SCH (02:00)
[2018-07-28] MEDS: Morphine 4 MG/ML VIAL SLOW IVP PRN (02:01)
[2018-07-28] MEDS: Sodium Chloride 0.9% 1,000 ML IV SCH ×2 (04:03→16:49)
[2018-07-28] MEDS: tiZANidine HCl 4 MG TAB PO PRN (04:29)
[2018-07-28] MEDS: HYDROcodone/Acetaminophen 10/325 mg Tablet PO PRN ×3 (04:29→20:43)
[2018-07-28] MEDS ORDERED: LINZESS PO SCH (09:00)
[2018-07-28] MEDS: Losartan 25 MG TAB PO SCH (09:17)
[2018-07-28] MEDS: Atorvastatin Calcium 40 MG TAB PO SCH (20:42)
[2018-07-29] MEDS: tiZANidine HCl 4 MG TAB PO PRN (02:40)
[2018-07-29] MEDS: HYDROcodone/Acetaminophen 10/325 mg Tablet PO PRN ×2 (06:32→14:08)
[2018-07-29] MEDS: Sodium Chloride 0.9% 1,000 ML IV SCH (07:26)
[2018-07-29] MEDS: Losartan 25 MG TAB PO SCH (09:10)
[2018-07-29 11:56] VITALS: BP 131/75; TEMP 97.4
--- NOTE | 2018-07-29 21:43 | EKG ---
Test Reason : PREOP Blood Pressure : / mmHG Vent. Rate : 071 BPM Atrial Rate : 071 BPM P-R Int : 166 ms QRS Dur : 090 ms QT Int : 432 ms P-R-T Axes : 042 -14 086 degrees QTc Int : 469 ms Normal sinus rhythm Nonspecific T wave abnormality Abnormal ECG When compared with ECG of 25-MAY-2018 10:10, No significant change was found Confirmed by Melissa MARIA ([id number]) on 07/29/2018 9:43:35 PM Referred By: SARAH Confirmed By:Melissa MARIA
--- NOTE | 2018-07-30 06:30 | DIS ---
DATE OF ADMISSION: 07/27/2018 DATE OF DISCHARGE: 07/29/2018 HOSPITAL COURSE: The patient is a 63-year-old female, status post revision of lumbar fusion. Following her surgery, she was transitioned to the [facility] floor, where her pain was well controlled with p.o. medications, she was tolerating regular diet, and voiding appropriately. She has been ambulatory in the department with her walker. She has been compliant with her LSO brace. She initially had some incisional drainage, but this resolved on postoperative day #2. She is lying in the bed comfortably, in no acute distress. She has free active range of motion in all extremities. No focal motor weakness. Sensation is intact to light touch. Her incision is dry with only small amount of drainage on the dressing pad. We will plan to dismiss the patient to home. I have discussed home care instructions. We will follow up with the patient in 2 weeks in the office. Job ID: [id number] MTDD
--- NOTE | 2018-07-30 15:06 | OP ---
DATE OF PROCEDURE: 07/27/2018 DEVULCANIZER TENDER: LON Segovia PROCEDURES PERFORMED: 1. Removal of hardware, right L5-S1. 2. Pedicle screw instrumentation, left L5-S1. 3. Posterolateral arthrodesis, L5-S1. 4. Demineralized bone matrix, local morselized autograft. DESCRIPTION OF PROCEDURE: The patient was brought to the operating room and intubated. She was rolled in the prone position on gel-filled chest rolls. The previous incision was re-opened exposing the L5-S1 region. We identified the previous L5-S1 hardware and removed the yulissa. We were able to identify the interbody device. It was not clear that it was contacting any neural elements, but given the ongoing symptoms that she has had, we did remove it without difficulty. The yulissa was then resecured and connected by nuts, which were finally tightened. We then placed left-sided pedicle screws at left L5 and left S1 using lateral fluoroscopic guidance. The yulissa was secured between the screws and connected by nuts, which were finally tightened. The wound was then extensively irrigated and max hemostasis was secured. A combination of demineralized bone matrix and local morselized autograft for the purpose of arthrodesis. Vancomycin powder was applied and the wound was then closed in anatomic layers. Job ID: [id number]
== END 2018-07-29 14:24 | disposition home or self-care (01) | DRG 460 ==
LOC: SURG A 06:50
PROVIDERS: ADMIT Neurological Surgery; ATTEND Neurological Surgery
PROC: 0SG30AJ Fusion of Lumbosacral Joint with Interbody Fusion Device, Posterior Approach, Anterior Column, Open Approach (ICD-10-PCS; principal; 2018-07-27)
PROC: 0SP30AZ Removal of Interbody Fusion Device from Lumbosacral Joint, Open Approach (ICD-10-PCS; 2018-07-27)
DX: M54.16 Radiculopathy, lumbar region (principal); Z88.0 Allergy status to penicillin; I10 Essential (primary) hypertension; E78.5 Hyperlipidemia, unspecified; K21.9 Gastro-esophageal reflux disease without esophagitis; F41.9 Anxiety disorder, unspecified; Z98.890 Other specified postprocedural states; F32.9 Major depressive disorder, single episode, unspecified; F17.210 Nicotine dependence, cigarettes, uncomplicated
CPT/HCPCS: 36415; 76001; 80048; 85025; 93005; 93010; 96374; C1713; C1768; G8978-GP-CK; G8979-GP-CJ; J1100; J1170; J1200; J1956; J2001; J2250; J2270; J2405; J2704; J3010; J3490

== ENCOUNTER 2018-08-12 15:57 | Outpatient (CLI) | payer MEDICARE ==
--- NOTE | 2018-08-12 17:19 | RAD ---
LUMBAR SPINE 2 VIEWS: Date: 08/12/18 HISTORY: M54.9, back pain. COMPARISON: Lumbar spine radiographs dated 07/01/18. FINDINGS: New left L5-S1 posterior fusion hardware. Removal of the right L5-S1 diskectomy spacer. There is prog ressive height loss of L5-S1. Similar anterolisthesis. Mild height loss L4-5. There is narrowing of the intraspinous space between L3-4, as well as L2-3. IMPRESSION: 1. Progressive height loss of L5-S1 due to removal of the diskectomy spacer. 2. New left L5-S1 yulissa and screw fixation. POS: [facility]
== END 2018-08-12 15:58 | disposition home or self-care (01) ==
LOC: TBSIIMAG 15:57
PROVIDERS: ATTEND Neurological Surgery
DX: M54.9 Dorsalgia, unspecified (principal); M51.87 Other intervertebral disc disorders, lumbosacral region; Z98.890 Other specified postprocedural states
CPT/HCPCS: 72100

== ENCOUNTER 2018-11-25 15:15 | Outpatient (CLI) | payer MEDICARE ==
--- NOTE | 2018-11-25 16:07 | RAD ---
LUMBAR SPINE: 11/25/18 Two views. HISTORY: Followup surgery. COMPARISON: Comparison made to lumbar films of 08/12/18. Pedicle screws at L5-S1 again noted. There has been no change in position of the pedicle screws. Ther e is a mild anterolisthesis of L5-S1 which appears stable. Loss of disc space at L5-S1 is stable. Alignment above L5 is maintained and is stable from prior study. IMPRESSION: Stable findings when compared to 08/12/18. POS: [facility]
== END 2018-11-25 15:16 | disposition home or self-care (01) ==
LOC: TBSIIMAG 15:15
PROVIDERS: ATTEND Neurological Surgery
DX: M54.16 Radiculopathy, lumbar region (principal)
CPT/HCPCS: 72100

== ENCOUNTER 2019-01-26 14:18 | Outpatient (CLI) | payer MEDICARE ==
--- NOTE | 2019-01-26 15:14 | MMO ---
Bilateral MAMMO Bilat Diag DDI+RAS. CLINICAL HISTORY: Patient is 63 years old and is seen for diagnostic exam and palpable abnormality in the right breast at 12 o'clock. The patient has no family history of breast cancer. The patient has no personal history of cancer. VIEWS: The views performed were: bilateral craniocaudal with tomosynthesis; bilateral mediolateral oblique with tomosynthesis; and bilateral mediolateral. FILMS COMPARED: The present examination has been compared to prior imaging studies performed at [facility] on 06/25/2006, 11/07/2010 and 01/26/2019. MAMMOGRAM FINDINGS: There are scattered fibroglandular densities. There is a new mass measuring 20 millimeters with spiculated margins seen in the posterior upper-inner region of the right breast. In the left breast, there are no suspicious masses, calcifications or areas of architectural distortion. IMPRESSION: NEW MASS IN THE RIGHT BREAST IS SUSPICIOUS. AN ULTRASOUND-GUIDED BREAST BIOPSY IS RECOMMENDED. SOLID MASS ON ULTRASOUND THE RESULTS OF THIS EXAM WERE SENT TO THE PATIENT. ACR BI-RADS Category 4 - Suspicious abnormality - biopsy should be considered MAMMOGRAPHY NOTE: 1. A negative mammogram report should not delay a biopsy if a dominant of clinically suspicious mass is present. 2. Approximately 10% to 15% of breast cancers are not detected by mammography. 3. Adenosis and dense breasts may obscure an underlying neoplasm.
--- NOTE | 2019-01-26 16:57 | ULT ---
RIGHT BREAST ULTRASOUND: 01/26/19 HISTORY: Patient presents with a palpable finding in the right breast at 1 o'clock. COMPARISON: Diagnostic mammogram 01/26/19. FINDINGS: Poorly circumscribed hypoechoic mass with minimal shadowing at 1 o'clock 5 cm from the nipple account ing for the palpable finding. This mass measures approximately 1.4 x 1.6 x 1.7 cm in size and certain ly is evidence for concern for right breast cancer. The right axilla was evaluated at the time of the right breast ultrasound and no evidence for adenopathy seen in the right axilla. IMPRESSION: BI-RADS 4: Suspicious Abnormality - Biopsy Should Be Considered Usually requires biopsy. Solid hypoechoic poorly circumscribed mass at 1 o'clock 5 cm from the nipple accounting for the palpa ble finding as well as a mammographic finding. Follow-up ultrasound guided breast biopsy is recommended. This was discussed with the patient at the time of the examination. In addition, Dr. Hortencia Mendoza was notified of this finding as well. POS: OFF
== END 2019-01-26 14:19 | disposition home or self-care (01) ==
LOC: BICMAMMO 14:18
PROVIDERS: ATTEND Family Medicine
DX: N63.12 Unspecified lump in the right breast, upper inner quadrant (principal)
CPT/HCPCS: 76642; 77066; G0279

== ENCOUNTER → 2019-02-02 | Day surgery (SDC) | payer MEDICARE ==
--- NOTE | 2019-02-02 13:40 | MMO ---
Right Breast MAMMO Unilat Diag DDI RT. CLINICAL HISTORY: Patient is 63 years old and is seen for diagnostic exam. VIEWS: The views performed were: . FILMS COMPARED: The present examination has been compared to prior imaging studies performed at [facility] on 06/25/2006, 11/07/2010 and 01/26/2019. MAMMOGRAM FINDINGS: There are scattered fibroglandular densities. There is a biopsy clip seen in the right breast. IMPRESSION: BIOPSY CLIP IN THE RIGHT BREAST IS CONFIRMED UTILIZING POST PROCEDURE MAMMOGRAM. THE RESULTS OF THIS EXAM WERE SENT TO THE PATIENT. MAMMOGRAPHY NOTE: 1. A negative mammogram report should not delay a biopsy if a dominant of clinically suspicious mass is present. 2. Approximately 10% to 15% of breast cancers are not detected by mammography. 3. Adenosis and dense breasts may obscure an underlying neoplasm.
--- NOTE | 2019-02-02 14:01 | ULT ---
ULTRASOUND GUIDED RIGHT BREAST BIOPSY: DATE: 02/02/2019. PROVIDED CLINICAL HISTORY:: Right breast mass. FINDINGS: Correlation is made with the previous ultrasound and mammogram of 01/26/2019. Informed consent was obt ained from the patient. The patient was placed on the sonography table in the supine position and th e skin overlying the 1 o'clock right breast mass was localized and prepped and draped in the usual st erile manner. The soft tissues were infiltrated with 1% buffered Lidocaine. Under contiguous sonogr aphic guidance, a 14 gauge core biopsy device was advanced adjacent to the mass and 4 core samples we re obtained. Subsequently, ultrasound guidance was utilized to direct biopsy clip deployment device adjacent to the mass and the biopsy site maker was deployed. [place] were withdrawn and hemostasis a chieved. No immediate complications. Post biopsy mammograms demonstrate appropriate clip deployment . IMPRESSION: Technically successful right breast biopsy. Please correlate with histology results to follow. POS: OFF
== END ==
LOC: BICULT 12:43
PROVIDERS: ATTEND Family Medicine
DX: C50.211 Malignant neoplasm of upper-inner quadrant of right female breast (principal)
CPT/HCPCS: 19083; 88305; 88341; 88342; 88361

== ENCOUNTER 2019-03-02 10:11 | Day surgery (SDC) | payer MEDICARE ==
[2019-03-01 13:06] VITALS: BMI 29.6
[2019-03-02 11:09] LABS: #Basophils 0.1 thou/uL (0.0-0.2); #Eosinphils 0.2 thou/uL (0.0-0.7); #Lymphocytes 2.2 thou/uL (1.20-3.40); #Monocytes 0.4 thou/uL (0.11-0.59); #Neutrophils 1.9 thou/uL (1.40-6.50); %Basophils 1.4 % (0.0-1.0); %Eosinophils 4.6 % (0.0-10.0); %Monocytes 7.8 % (0.0-10.0); %Neutrophils 40.2 % (42.0-75.0); Hemoglobin 12.6 g/dL (12.0-16.0); Mean Corpuscular HGB CONC 34.2 g/dL (32.0-36.0); Mean Corpuscular Hemoglobin 34.2 pg (27.0-31.0); Mean Platelet Volume 8.2 fL (7.4-10.4); Platelet Count 220 thou/uL (130-400); RBC Distribution Width 12.3 % (11.5-14.5); Red Blood Cell (RBC) Count 3.67 mill/uL (4.20-5.40); White Blood Cell (WBC) Count 4.8 thou/uL (4.8-10.8)
[2019-03-02] MEDS ORDERED: Levofloxacin 500 mg/D5W 100 ml Premix Bag ONE (11:26)
[2019-03-02] MEDS ORDERED: Clindamycin/D5W 900 mg/50 ml Premix Bag ONE (11:26)
[2019-03-02 11:32] LABS: Anion Gap 11 mmol/L (10-20); BUN (Urea Nitrogen) 18 mg/dL (9.8-20.1); Calc. Creatinine Clearance 85 mL/min (70-130); Calcium 9.5 mg/dL (7.8-10.44); Carbon Dioxide 24 mmol/L (23-31); Chloride 108 mmol/L (98-107); Estimated GFR-MDRD 88; Glucose 95 mg/dL (80-115); Potassium 3.6 mmol/L (3.5-5.1); Sodium 139 mmol/L (136-145)
[2019-03-02] MEDS ORDERED: Fentanyl 100 MCG/2 ML VIAL ONE (13:02)
[2019-03-02] MEDS ORDERED: Propofol 500 MG/50 ML VIAL ONE (13:02)
[2019-03-02] MEDS ORDERED: Bupivacaine/Epinephrine 0.25% 30 ML VIAL ONE (13:06)
[2019-03-02] MEDS ORDERED: Lidocaine 2% PF 5 ML VIAL ONE (13:06)
[2019-03-02] MEDS ORDERED: PROPOFOL 200 MG/20 ML VIAL ONE (13:57)
--- NOTE | 2019-03-02 14:55 | RAD ---
SINGLE VIEW CHEST: Date: 03/02/19 COMPARISON: 06/26/09, 05/18/17. HISTORY: Status post MediPort placement. FINDINGS: Single view of the chest shows normal sized cardiomediastinal silhouette with atherosclerotic calcifi cations in the aorta. There is a left IJ MediPort with its tip in the superior vena cava. No pneumoth orax is seen. There is no evidence of consolidation, mass, or pleural effusion. IMPRESSION: Status post MediPort placement without evidence of complication. POS: [facility]
[2019-03-02] MEDS ORDERED: HYDROcodone/Acetaminophen 5/325 mg Tablet ONE (15:00)
--- NOTE | 2019-03-03 17:26 | EKG ---
Test Reason : PREOP Blood Pressure : / mmHG Vent. Rate : 056 BPM Atrial Rate : 056 BPM P-R Int : 156 ms QRS Dur : 092 ms QT Int : 478 ms P-R-T Axes : 024 005 101 degrees QTc Int : 461 ms Sinus bradycardia Nonspecific T wave abnormality Abnormal ECG Confirmed by FRANCISCO CRUZ ([id number]) on 03/03/2019 5:26:16 PM Referred By: JAMES Confirmed By:FRANCISCO CRUZ
--- NOTE | 2019-03-06 08:07 | PDOC.OP ---
Operative Note - Operative Note Operative Note: PROCEDURE: Left internal jugular MediPort placement with ultrasound and fluoroscopic guidance, ultrasound-guided needle aspiration of right axillary lymph node DATE OF PROCEDURE: 03/02/2019 SURGEON: Rojelio Simmons M.D. PREOPERATIVE DIAGNOSIS: Right breast cancer POSTOPERATIVE DIAGNOSIS: Right breast cancer HISTORY: Patient has been diagnosed with progressive right breast cancer. Chemotherapy has been recommended and a Mediport has been requested for this. She has a palpable right axillary lymph node which was aspirated in clinic and atypical cells but no malignancy seen. Repeat FNA was also recommended. OPERATIVE PROCEDURE IN DETAIL: After informed consent was obtained and appropriate preoperative antibiotics administered, the patient was taken to the operating room and placed in supine position and monitored anesthesia care was administered. The patient was then placed in Trendelenburg position and the subclavian vein attempted to be accessed but good flow could not be obtained. A sterile ultrasound probe was then used to identify the patent compressible left internal jugular vein. This was accessed easily under direct ultrasound guidance on the first attempt with excellent flow of dark venous non-pulsatile blood. A wire threaded easily and was confirmed to be in the superior vena cava by fluoroscopy. Additional local anesthesia was infused to the skin and subcutaneous tissues of the left chest. A skin incision was made and a subcutaneous pocket developed inferiorly. A Mediport was obtained and confirmed to fit in the subcutaneous pocket. This was secured inferiorly to the pectoralis fascia with a Prolene suture, which was clamped, but not tied. The Mediport tubing was then tunneled from this site to the left IJ access site. The dilator and sheath were then placed over the wire and the dilator and wire removed leaving the sheath in place. The clamped MediPort tubing was tunneled through the sheath, which was then split and removed leaving the MediPort tubing in place. The tubing was adjusted until the tip was confirmed by fluoroscopy to be in the superior vena cava just above the atrium. The tubing was clamped at the level of the subcutaneous pocket and cut and the tubing secured to the port, which was then placed in the subcutaneous pocket. The previously placed suture was secured and two additional sutures were placed to fix the port in place within the pocket. The port was aspirated with the Villatoro needle and had excellent flow of dark venous non-pulsatile blood and easily flushed without resistance. The subcutaneous tissues were closed with a running Monocryl suture, following which the skin was closed with a running subcuticular Monocryl suture. The skin at the left IJ access site was likewise closed in layers with 4-0 Monocryl suture. Dermabond dressings were placed and the hub was again accessed through the skin and confirmed to easily aspirate and easily flush. The course of the catheter was confirmed by fluoroscopy to be smooth with the tip appropriately located in the superior vena cava. Attention was then turned to aspiration of the palpable right axillary lymph node. This was identified by ultrasound and the skin prepped with alcohol and local anesthesia infused to the skin. 3 passes were made under direct ultrasound guidance the scant return of slightly bloody tissue. This was sent in CytoLyt to pathology. A sterile dressing was placed at this site. The patient was taken back to the day stay unit in good condition. Estimated blood loss was minimal. There were no complications. Specimen is fine-needle aspiration of right axillary lymph node.
== END 2019-03-02 16:00 | disposition home or self-care (01) ==
LOC: SDC 10:11
PROVIDERS: ATTEND Surgery
PROC: 0JH63WZ Insertion of Totally Implantable Vascular Access Device into Chest Subcutaneous Tissue and Fascia, Percutaneous Approach (ICD-10-PCS; principal; 2019-03-02)
PROC: 07D53ZX Extraction of Right Axillary Lymphatic, Percutaneous Approach, Diagnostic (ICD-10-PCS; 2019-03-02)
DX: C50.911 Malignant neoplasm of unspecified site of right female breast (principal); M06.9 Rheumatoid arthritis, unspecified; I10 Essential (primary) hypertension; E78.00 Pure hypercholesterolemia, unspecified; F32.9 Major depressive disorder, single episode, unspecified; M19.90 Unspecified osteoarthritis, unspecified site; Z17.1 Estrogen receptor negative status [ER-]; Z87.891 Personal history of nicotine dependence; Z79.82 Long term (current) use of aspirin; Z79.899 Other long term (current) drug therapy; Z88.0 Allergy status to penicillin; Z98.890 Other specified postprocedural states
CPT/HCPCS: 10005; 36561; 71045; 80048; 85025; 88173; 93005; C1788; 36415; 93010; J1642; J1956; J2001; J2704; J3010; J3490

== ENCOUNTER 2019-03-10 07:27 | Day surgery (SDC) | payer MEDICARE ==
[~2019-03-10 07:27] MED LIST: CYCLOPHOSPHAMIDE IVPB SCH; DOXORUBICIN IVPB SCH; Palonosetron HCl 0.25 MG in Sodium Chloride 0.9% 50 ML IVPB SCH; Pegfilgrastim Onpro 6 MG/0.6 ML SQ SCH; SODIUM CHLORIDE 0.9% IVPB SCH
[2019-03-10] MEDS ORDERED: Sodium Chloride 0.9% 20 ML ONE (09:05)
[2019-03-10 10:55] VITALS: BP 173/73; TEMP 96.7
== END 2019-03-10 15:47 | disposition home or self-care (01) ==
LOC: ONC/OP 07:27
PROVIDERS: ATTEND Internal Medicine Hematology & Oncology
DX: Z51.11 Encounter for antineoplastic chemotherapy (principal); C50.211 Malignant neoplasm of upper-inner quadrant of right female breast; Z88.0 Allergy status to penicillin
CPT/HCPCS: 96367; 96375; 96377; 96413; 96417; J1100; J1453; J1642; J2469; J2505; J3490; J7050; J9000; J9070

== ENCOUNTER 2019-03-15 23:22 | Emergency (ER) | payer MEDICARE ==
[2019-03-15 23:43] LABS: Bacteria/HPF None Seen HPF (None Seen); Bilirubin Negative (Negative); Blood, Urine 3+ (Negative); Clarity Clear (Clear); Glucose, Urine (Dipstick) Normal (Negative); Leukocyte Negative Leu/uL (Negative); Nitrite Negative (Negative); Protein, Urine (Dipstick) Negative (Neg-Trace); RBC/HPF 21-50 HPF (0-3); Squamous Epithelial 0-3 HPF (0-3); Urobilinogen Normal mg/dL (Less than 2); WBC/HPF 0-3 HPF (0-3)
[2019-03-16] MEDS ORDERED: Ketorolac Tromethamine 30 MG/ML VIAL ONE (01:07)
[2019-03-16 01:36] LABS: Anion Gap 11 mmol/L (10-20); BUN (Urea Nitrogen) 20 mg/dL (9.8-20.1); Calc. Creatinine Clearance 0 mL/min (70-130); Calcium 9.5 mg/dL (7.8-10.44); Carbon Dioxide 23 mmol/L (23-31); Chloride 108 mmol/L (98-107); Estimated GFR-MDRD 89; Glucose 105 mg/dL (80-115); Potassium 3.8 mmol/L (3.5-5.1); Sodium 138 mmol/L (136-145)
[2019-03-16 01:44] LABS: Hemoglobin 12.3 g/dL (12.0-16.0); Mean Corpuscular HGB CONC 33.8 g/dL (32.0-36.0); Mean Corpuscular Hemoglobin 33.9 pg (27.0-31.0); RBC Distribution Width 12.2 % (11.5-14.5); Red Blood Cell (RBC) Count 3.63 mill/uL (4.20-5.40); White Blood Cell (WBC) Count 5.8 thou/uL (4.8-10.8)
[2019-03-16 02:04] LABS: Band 4 % (5-11); Eosinophils 7 % (0-10); Lymphocytes 44 % (21-51); MDiff Complete? YES; Mean Platelet Volume 9.2 fL (7.4-10.4); Monocytes 3 % (0-10); Neutrophil 39 % (42-75); Platelet Count 109 thou/uL (130-400); Platelet Morphology Comment Appears Decreased; Reactive Lymphocytes 3 % (0-10)
[2019-03-16] MEDS ORDERED: Tamsulosin HCl 0.4 MG CAP PO SCH (03:30)
--- NOTE | 2019-03-16 06:45 | CT ---
CT ABDOMEN AND PELVIS WITHOUT CONTRAST: INDICATIONS: Abdominal pain. FINDINGS: The lung bases are clear. The liver, spleen, and pancreas are unremarkable. There are nonobstructing calculi in the upper collecting structures of both kidneys. Mild right hydr onephrosis. Mild dilatation of the right ureter. There is a 4 to 5 mm calculus in the distal right ureter. The left ureter is of normal caliber. The bladder is unremarkable. Bowel loops are unremarkable. IMPRESSION: 1. A 5 mm calculus in the distal right ureter, producing mild right hydronephrosis. 2. Nonobstructing calculi in the upper collecting structures of both kidneys. POS: [facility]
== END 2019-03-16 03:20 | disposition home or self-care (01) ==
LOC: ERS 23:22
DX: N13.2 Hydronephrosis with renal and ureteral calculous obstruction (principal); E78.5 Hyperlipidemia, unspecified; I10 Essential (primary) hypertension; F41.9 Anxiety disorder, unspecified; F32.9 Major depressive disorder, single episode, unspecified; F17.210 Nicotine dependence, cigarettes, uncomplicated
CPT/HCPCS: 36415; 74176; 80048; 81003; 81015; 85025; 96374; J1885

== ENCOUNTER 2019-03-24 10:40 | Day surgery (SDC) | payer MEDICARE ==
[2019-03-24 13:24] VITALS: BP 118/61; TEMP 98.2
== END 2019-03-24 16:13 | disposition home or self-care (01) ==
LOC: ONC/OP 10:40
PROVIDERS: ATTEND Internal Medicine Hematology & Oncology
DX: Z51.11 Encounter for antineoplastic chemotherapy (principal); C50.211 Malignant neoplasm of upper-inner quadrant of right female breast
CPT/HCPCS: 80053; 82248; 83615; 84100; 84550; 96367; 96375; 96377; 96413; 96417; J1100; J1453; J2469; J2505; J3490; J7050; J9000; J9070

== ENCOUNTER 2019-03-26 15:45 | Emergency (ER) | payer MEDICARE ==
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
== END 2019-03-26 17:29 | disposition home or self-care (01) ==
LOC: ERS 15:45
DX: R07.89 Other chest pain (principal); E78.5 Hyperlipidemia, unspecified; I10 Essential (primary) hypertension; F41.9 Anxiety disorder, unspecified; F32.9 Major depressive disorder, single episode, unspecified; Z85.3 Personal history of malignant neoplasm of breast; V43.53XA Car driver injured in collision with pick-up truck in traffic accident, initial encounter
CPT/HCPCS: 71046

== ENCOUNTER 2019-04-07 10:09 | Day surgery (SDC) | payer MEDICARE | END 2019-04-07 13:36 | disposition home or self-care (01) | LOC: ONC/OP 10:09 | PROVIDERS: ATTEND Internal Medicine Hematology & Oncology | DX: Z51.11 Encounter for antineoplastic chemotherapy (principal); C50.211 Malignant neoplasm of upper-inner quadrant of right female breast; Z17.1 Estrogen receptor negative status [ER-]; Z88.0 Allergy status to penicillin | CPT/HCPCS: 96367; 96375; 96377; 96413; 96417; J1100; J1453; J2469; J2505; J3490; J7050; J9000; J9070 ==

== ENCOUNTER 2019-04-21 11:46 | Day surgery (SDC) | payer MEDICARE ==
[2019-04-21] MEDS ORDERED: Sodium Chloride 0.9% 20 ML ONE (12:10)
[2019-04-21 12:25] VITALS: BP 131/60; TEMP 97.6
== END 2019-04-21 15:44 | disposition home or self-care (01) ==
LOC: ONC/OP 11:46
PROVIDERS: ATTEND Internal Medicine Hematology & Oncology
DX: Z51.11 Encounter for antineoplastic chemotherapy (principal); C50.211 Malignant neoplasm of upper-inner quadrant of right female breast
CPT/HCPCS: 36415; 80053; 82248; 83615; 84100; 84550; 96375; 96377; 96413; 96417; J1100; J1453; J1642; J2469; J2505; J3490; J7050; J9000; J9070

== ENCOUNTER 2019-05-05 10:51 | Day surgery (SDC) | payer MEDICARE ==
[~2019-05-05 10:51] MED LIST changes: -CYCLOPHOSPHAMIDE IVPB SCH; -DOXORUBICIN IVPB SCH; +Ondansetron 2MG/ML MDV 10 MG, Dexamethasone Sod Phosphate 10 MG in Sodium Chloride 0.9%... IVPB SCH; +PACLITAXEL IVPB SCH; -Palonosetron HCl 0.25 MG in Sodium Chloride 0.9% 50 ML IVPB SCH; -Pegfilgrastim Onpro 6 MG/0.6 ML SQ SCH
[2019-05-05] MEDS ORDERED: Sodium Chloride 0.9% 20 ML ONE (11:29)
[2019-05-05 11:49] VITALS: BP 122/59; TEMP 98.5
== END 2019-05-05 14:44 | disposition home or self-care (01) ==
LOC: ONC/OP 10:51
PROVIDERS: ATTEND Internal Medicine Hematology & Oncology
DX: Z51.11 Encounter for antineoplastic chemotherapy (principal); C50.211 Malignant neoplasm of upper-inner quadrant of right female breast; Z88.0 Allergy status to penicillin
CPT/HCPCS: 36415; 80053; 82248; 83615; 84100; 84550; 96375; 96413; J1100; J1642; J2405; J7050; J9267

== ENCOUNTER 2019-05-12 11:22 | Day surgery (SDC) | payer MEDICARE, OTHER ==
[~2019-05-12 11:22] MED LIST changes: -Ondansetron 2MG/ML MDV 10 MG, Dexamethasone Sod Phosphate 10 MG in Sodium Chloride 0.9%... IVPB SCH; +Ondansetron HCl/PF 10 MG, Dexamethasone 10 MG in Sodium Chloride 0.9% 50 ML IVPB SCH
[2019-05-12] MEDS ORDERED: Sodium Chloride 0.9% 20 ML ONE (11:25)
[2019-05-12 13:15] VITALS: BP 143/63; TEMP 97.8
== END 2019-05-12 13:19 | disposition home or self-care (01) ==
LOC: ONC/OP 11:22
PROVIDERS: ATTEND Internal Medicine Hematology & Oncology
DX: Z51.11 Encounter for antineoplastic chemotherapy (principal); C50.211 Malignant neoplasm of upper-inner quadrant of right female breast; Z88.0 Allergy status to penicillin; Z17.1 Estrogen receptor negative status [ER-]
CPT/HCPCS: 36415; 80053; 82248; 83615; 84100; 84550; 96375; 96413; J1100; J1642; J2405; J7050; J9267

== ENCOUNTER 2019-05-19 10:09 | Day surgery (SDC) | payer MEDICARE, OTHER ==
[~2019-05-19 10:09] MED LIST changes: +Dexamethasone Sod Phosphate 10 MG, Ondansetron 2MG/ML MDV 10 MG in Sodium Chloride 0.9%... IVPB SCH; -Ondansetron HCl/PF 10 MG, Dexamethasone 10 MG in Sodium Chloride 0.9% 50 ML IVPB SCH
[2019-05-19] MEDS ORDERED: Sodium Chloride 0.9% 20 ML ONE (10:14)
[2019-05-19 10:29] VITALS: BP 125/64; TEMP 98.4
== END 2019-05-19 13:53 | disposition home or self-care (01) ==
LOC: ONC/OP 10:09
PROVIDERS: ATTEND Internal Medicine Hematology & Oncology
DX: Z51.11 Encounter for antineoplastic chemotherapy (principal); C50.211 Malignant neoplasm of upper-inner quadrant of right female breast; Z17.1 Estrogen receptor negative status [ER-]; Z88.0 Allergy status to penicillin
CPT/HCPCS: 96375; 96413; J1100; J1642; J2405; J7050; J9267

== ENCOUNTER 2019-05-23 09:11 | Observation (INO) | payer MEDICARE, OTHER ==
--- NOTE | 2019-05-23 09:57 | RAD ---
Chest one view HISTORY: Chest pain. COMPARISON: 03/26/2019. FINDINGS: Cardiac silhouette is magnified by projection. Pulmonary vasculature is unremarkable. Media stinum is midline with aortic calcification and a left sided Port-A-Cath. Linear scarring at the lung bases is stable. No confluent airspace consolidation or evidence of pneumothorax. IMPRESSION: Atherosclerosis. Chronic-type findings are stable.
[2019-05-23 10:13] LABS: #Lymphocytes 0.6 thou/uL (1.20-3.40); #Monocytes 0.2 thou/uL (0.11-0.59); #Neutrophils 4.2 thou/uL (1.40-6.50); %Basophils 0.2 % (0.0-1.0); %Eosinophils 0.5 % (0.0-10.0); %Lymphocytes 11.7 % (21.0-51.0); %Monocytes 3.5 % (0.0-10.0); Hemoglobin 10.5 g/dL (12.0-16.0); Mean Corpuscular Hemoglobin 35.8 pg (27.0-31.0); Mean Corpuscular Volume 99.5 fL (78.0-98.0); Mean Platelet Volume 8.7 fL (7.4-10.4); Platelet Count 174 thou/uL (130-400); RBC Distribution Width 15.8 % (11.5-14.5); Red Blood Cell (RBC) Count 2.93 mill/uL (4.20-5.40); White Blood Cell (WBC) Count 5.1 thou/uL (4.8-10.8)
[2019-05-23 10:25] LABS: ALT (SGPT) 16 U/L (8-55); AST (SGOT) 15 U/L (5-34); Albumin 3.7 g/dL (3.4-4.8); Alkaline Phosphatase 102 U/L (40-110); Anion Gap 11 mmol/L (10-20); BUN (Urea Nitrogen) 14 mg/dL (9.8-20.1); Bilirubin, Total 0.8 mg/dL (0.2-1.2); Calc. Creatinine Clearance 0 mL/min (70-130); Calcium 8.9 mg/dL (7.8-10.44); Carbon Dioxide 21 mmol/L (23-31); Chloride 108 mmol/L (98-107); Estimated GFR-MDRD 89; Globulin 2.5 g/dL (2.4-3.5); Glucose 98 mg/dL (80-115); Potassium 3.2 mmol/L (3.5-5.1); Protein, Total 6.2 g/dL (6.0-8.3); Sodium 137 mmol/L (136-145)
--- NOTE | 2019-05-23 11:20 | CT ---
CTA Angio Chest W WO Con 05/23/2019 10:48 AM Indication: Elevated d-dimer with history of breast cancer Technique: Multiple CTA images were obtained of the thorax with IV contrast. 3-D rendering: MIP blaire nstructed images were created and reviewed. Comparison: No relevant prior studies available. Findings: Pulmonary arteries: No central or segmental pulmonary embolus is evident. Heart and Aorta: There are mild calcifications involving the aorta and proximal origins of great art eries of the neck. There is a left chest wall port in place. Mediastinum:Normal appearing. No enlarged lymph nodes. Lungs:There is a tiny sub-4 mm pulmonary nodule left lung apex on image 15 series 3. No additional pu lmonary nodule is evident. No consolidation is noted. Pleural space: Clear. Upper Abdomen: Bilateral renal cysts and nephrolithiasis. The gallbladder surgically absent with Osseous Structures: No acute osseous abnormality. Soft tissues:No abnormality. Other findings:None. Impression: No central or segmental pulmonary embolus. Tiny sub-4 mm left lung apex pulmonary nodule. Given patient's history, follow-up CT examination of t he thorax without contrast in 3-6 months may be helpful to document stability.
[2019-05-23 12:16] LABS: CKMB 0.5 ng/mL (0-6.6)
[2019-05-23] MEDS ORDERED: ISOVUE-370 76%-LOCM 1 ML ONE (12:22)
[2019-05-23] MEDS ORDERED: Nitroglycerin 2% Ointment 1 INCH/1 GM Packet ONE (12:26)
[2019-05-23] MEDS ORDERED: Aspirin Chewable 81 MG TAB ONE (12:41)
[2019-05-23 13:08] LABS: Troponin I 0.048 ng/mL (< 0.028)
--- NOTE | 2019-05-23 13:11 | PDOC.FPRHP ---
- History of Present Illness Chief Complaint: chest pain History of Present Illness: Pt is 64-yo female who has current breast cancer and receiving taxol chemotherapy every Friday. She presents for chest pain which feels like pressure, does not radiate which Started yesterday. She was at home laying down watching TV when the pain started. Pain started in stomach (epigastric area). Followed by chest pain feeling like pressure couple hours after and then pain described as itching in her throat and headache. She has had this chest pain before: last time in the hospital when she had pneumonia and UTI. Denies SOB and dyspnea on exertion. Pain comes and goes, random and not assoicated w/ eating. Not associated w/ exertion. Cardiac history includes aortic regurgitation, previous hospitalizations for endocarditis, and cardiac cath several years ago which showed clean arteries. Denies history of SC or stroke. No history of DVT or PE. Cancer includes the R breast. Surgery planned after chemo, is her last chemo day. Sick contacts include daughter and grand-son, whom she lives with. The sick contacts have been coughing and having common cold symptoms. ED Course: received [id number] and nitro in ED. - Allergies/Adverse Reactions Allergies Allergy/AdvReac Type Severity Reaction Status Date / Time Penicillins Allergy Mild Verified 05/23/19 14:39 - Home Medications Medication Instructions Recorded Confirmed Type Atorvastatin Calcium 40 mg PO HS 04/28/15 05/23/19 History Pantoprazole Sodium 40 mg PO DAILY 04/28/15 05/23/19 History Linaclotide [Linzess] 1 tab PO DAILY 05/25/18 05/23/19 History Carvedilol 3.125 mg PO BID 03/01/19 05/23/19 History FLUoxetine HCl [Fluoxetine HCl] 10 mg PO DAILY 03/01/19 05/23/19 History hydrOXYzine HCl [Hydroxyzine HCl] 25 mg PO HS PRN 03/01/19 05/23/19 History Acetaminophen With Codeine 1 tablet PO BID PRN 05/23/19 05/23/19 History [Tylenol with Codeine #3] Losartan [Cozaar] 25 mg PO DAILY 05/23/19 05/23/19 History Restasis [Restasis Ophth Drops] 1 drop EA EYE BID 05/23/19 05/23/19 History tiZANidine HCl [Tizanidine HCl] 4 mg PO BID PRN 05/23/19 05/23/19 History - History PMHx: - HTN - High cholesterol - constipation - Breast cancer - Depression - Insomnia PSHx: - Knee replacement L - Hand surgery for break - Neck surgery on C-spine - R shoulder surgery - cholecystecomy - 2 back surgeries for disc herniation - Cardiac cath, negative FHx: non-contributory Social: - Former smoker: 1 pack per week, quit in November 2018 - Alcohol: denies - Drugs: denies - Live w/ daughter, grandkids - Review of Systems General: reports: fever/chills, fatigue Eyes: reports: vision changes (dry eyes, takes restasis and sustain) ENT: reports: other (nose feels dry, denies nosebleeds). denies: nasal congestion, rhinorrhea Respiratory: reports: cough. denies: shortness of breath, exercise intolerance Cardiovascular: reports: chest pain (see hpi). denies: palpitation, edema Gastrointestinal: reports: constipation. denies: nausea, vomiting, diarrhea Genitourinary: denies: dysuria Skin: denies: rashes Musculoskeletal: denies: pain Neurological: denies: syncope, seizure, weakness Psychological: reports: anxiety, depression - Vital signs BP: 151/69 HR: 83 RR: 16 Tmax: 98.7 Pox: 97% on RA Wt: 61 kg - Physical Exam Constitutional: NAD, awake, alert and oriented HEENT: normocephalic and atraumatic (alopecia 2/2 chemo), PERRLA, EOMI, no scleral icterus, grossly normal vision, TM's clear and intact, grossly normal hearing, normal nasal mucosa, MMM, oropharynx clear Neck: supple, trachea midline, no LAD Heart: RRR, normal S1/S2 (murmur 2/6 best heard over RUSB and LUSB, may be systolic or diastolic) Lungs: CTAB, no respiratory distress, no wheezing Abdomen: soft (mildly tender over RLQ and RUQ, liver may be tender and enlarged) , bowel sounds present, no masses/distention Neurological: no focal deficit Skin: no rash/lesions, good turgor Heme/Lymphatic: no unusual bruising or bleeding Psychiatric: normal mood and affect, intact recent and remote memory FMR H&P: Results - Labs Result Diagrams: 05/23/19 09:44 05/23/19 09:44 Lab results: WBC 5.1 thou/uL (4.8-10.8) 05/23/19 09:44 Hgb 10.5 g/dL (12.0-16.0) L 05/23/19 09:44 Hct 29.1 % (36.0-47.0) L 05/23/19 09:44 MCV 99.5 fL (78.0-98.0) H 05/23/19 09:44 Plt Count 174 thou/uL (130-400) 05/23/19 09:44 Neutrophils % 84.0 % (42.0-75.0) H 05/23/19 09:44 Sodium 137 mmol/L (136-145) 05/23/19 09:44 Potassium 3.2 mmol/L (3.5-5.1) L 05/23/19 09:44 Chloride 108 mmol/L (98-107) H 05/23/19 09:44 Carbon Dioxide 21 mmol/L (23-31) L 05/23/19 09:44 BUN 14 mg/dL (9.8-20.1) 05/23/19 09:44 Creatinine 0.67 mg/dL (0.6-1.1) 05/23/19 09:44 Glucose 98 mg/dL (80-115) 05/23/19 09:44 Calcium 8.9 mg/dL (7.8-10.44) 05/23/19 09:44 Total Bilirubin 0.8 mg/dL (0.2-1.2) 05/23/19 09:44 AST 15 U/L (5-34) 05/23/19 09:44 ALT 16 U/L (8-55) 05/23/19 09:44 Alkaline Phosphatase 102 U/L (40-110) 05/23/19 09:44 CK-MB (CK-2) 0.5 ng/mL (0-6.6) 05/23/19 09:44 Serum Total Protein 6.2 g/dL (6.0-8.3) 05/23/19 09:44 Albumin 3.7 g/dL (3.4-4.8) 05/23/19 09:44 Lipase 24 U/L (8-78) 05/23/19 09:44 - EKG Interpretation EKG: NSR FMR H&P: A/P - Problem List (1) Atypical chest pain Current Visit: No Status: Acute Code(s): R07.89 - OTHER CHEST PAIN (2) Constipation Current Visit: No Status: Chronic Code(s): K59.00 - CONSTIPATION, UNSPECIFIED (3) Depression Current Visit: No Status: Chronic Code(s): F32.9 - MAJOR DEPRESSIVE DISORDER , SINGLE EPISODE, UNSPECIFIED (4) Diastolic murmur Current Visit: No Status: Chronic Code(s): I38 - ENDOCARDITIS, VALVE UNSPECIFIED (5) Headache Current Visit: No Status: Acute Code(s): R51 - HEADACHE (6) Hypertension Current Visit: No Status: Chronic Code(s): I10 - ESSENTIAL (PRIMARY) HYPERTENSION (7) URI (upper respiratory infection) Current Visit: No Status: Acute Code(s): J06.9 - ACUTE UPPER RESPIRATORY INFECTION, UNSPECIFIED (8) Breast cancer Current Visit: Yes Status: Acute - Plan 64 year old female admitted for ACS/ chest pain r/o: Atypical chest pain - HEART score = 5 - D-dimer +, CTA negative for PE - Troponin x2 downtrended. - Pain not relieved much by nitro. Not assoc w/ exertion. - Risk stratify: A1C, fasting lipid panel in AM. - TSH, Magnesium, phosphorus ordered. - ECHO ordered - stress test in AM - NPO at midnight - Holding hypertensive meds which are beta blockers - ASA 81 and statin - Gave pepcid to see if pt's symptoms may be attributable to GERD Chemotherapy patient, immunocompromised - due to pt sick contacts and current chemo, will test for strep given patients sore throat - continue to monitor - Cancer greatly contributes to Jd score which is 4. Will begin Lovenox tomorrow AM for VTE PPx. Breast cancer, right breast - Diagnosed in November 2018 - Quit smoking at that time - Taxol every friday - Hair loss 2/2 chemotherapy Headache Abdominal pain, left sided - may be chronic in nature. - continue to monitor and treat pain, restarted home Tylenol 3 which was prescribed by oncologist - if no improvement, consider further workup Chronic conditions: HTN High cholesterol - continue losartan. Hold beta otoniel Aortic regurgitation, severe - pt unsure of last ECHO or who her side door man is - last ECHO her, EF WNL and showing the AR - ECHO ordered, as above Dry eyes - continue home eye drops Insomnia - may continue hydroxyzine at night prn Chronic constipation - continue linzess Code: FULL Consider palliative care consult, as pt was hesitant about what she wanted her code status to be. Chose to remain full code for now. Diet: Heart healthy. NPO midnight. VTE PPx: lovenox in AM GI PPx: pepcid Fluids: LR at midnight at 100ml/hr while NPO Disposition/LOS: Admit to telemetry, observation. FMR H&P: Upper Level - Plan Date/Time: 05/23/19 1305 I, Arnaud Mixon MD, have evaluated this patient and agree with findings/plan as outlined by internet merchant resident. Pertinent changes/additions are listed here. Nelda Maurice is a 64 year old F with a PMH of right breast cancer undergoing neoadjuvant chemo with plans for surgery, HTN, HLD who presented to the ED after acute onset of chest pain today. Pain started while she was lying down on the cough, initially in the epigastrium and migrated up to the right side of chest. Denies diaphoresis or nausea associated with pain. States that she has a history of aortic regurgitation and follows with a side door man, unsure of who. Had a cardiac cath in 2017 that was normal. Last Echo in chart showed EF of 55-60% with severe aortic regurgitation. She denies any orthopnea, PND, dyspnea. Pain is not associated with exertion. She states that there are a couple family members in the house that have been sick with URI. She endorses sore throat and cough, had the chills yesterday but did not check temp. On admission, VSS and she had a no acute findings on CXR (atherosclerosis) or CTA chest, which was done for an elevated d-dimer. She did have a sub-4 mm pulmonary nodule that will need repeat imaging in 3-6 months. EKG showed NSR, no ST changes. Initial trop was 0.07, repeat was downtrending to 0.04. WBC was normal, along with BMP. We are placing patient on tele obs for atypical chest pain r/o ACS. Trending trops. Ordered Nuc med stress test. Consider getting Echo to monitor AR and EF. Will continue to monitor patient. Lovenox for VTE ppx. Continue asa and statin. Please see internet merchant note above for full H&P, which I have reviewed and agree with. Addendum - Attending - Attending Attestation Date/Time: 05/23/19 4915 I personally evaluated the patient and discussed the management with Dr. Mendoza /Oral. I agree with the History, Examination, Assessment and Plan documented above with any addition or exceptions noted below. Patient with multiple risk factors for CAD here with episodes of chest pain that have been ongoing the last few days. No evidence of ACS at this time. She needs stress testing and risk stratification. Continue to treat chronic conditions. Further mgmt per Stress result. Obs overnight.
[2019-05-23] MEDS ORDERED: Ondansetron ODT 4 MG TAB ONE (13:13)
[2019-05-23] MEDS ORDERED: Acetaminophen 325 MG TAB PO PRN (13:55)
[2019-05-23] MEDS ORDERED: Calcium Carbonate 500 MG ChewTAB PO PRN (13:55)
[2019-05-23] MEDS ORDERED: Ondansetron ODT 4 MG TAB PO PRN (13:55)
[2019-05-23] MEDS ORDERED: Ondansetron PF 4 MG/2 ML Vial IVP PRN (13:55)
[2019-05-23] MEDS ORDERED: Guaifenesin DM 100-10/5 ML UDCUP PO PRN (13:55)
[2019-05-23 14:52] VITALS: BMI 30.6
[2019-05-23 15:32] LABS: Hemoglobin A1c 5.4 % (4.0-6.0)
[2019-05-23] MEDS ORDERED: hydrOXYzine 25 MG TAB PO PRN (15:32)
[2019-05-23] MEDS ORDERED: tiZANidine HCl 4 MG TAB PO PRN (15:32)
[2019-05-23 15:42] LABS: Magnesium 1.6 mg/dL (1.6-2.6); Phosphorus 2.7 mg/dL (2.3-4.7)
[2019-05-23] MEDS ORDERED: Famotidine 20 MG TAB PO SCH (16:30)
[2019-05-23] MEDS: Acetaminophen/Codeine 30-300mg Tablet PO PRN (16:45)
[2019-05-23] MEDS ORDERED: Chloraseptic Spray 180 ml Bottle PO PRN (17:33)
[2019-05-23] MEDS ORDERED: Ibuprofen 600 MG TAB PO PRN (17:35)
[2019-05-23] MEDS: Famotidine 20 MG TAB PO SCH (20:27)
[2019-05-23] MEDS: cycloSPORINE 0.05% Ophthalmic Droperette EA EYE SCH (20:28)
[2019-05-23] MEDS: Famotidine/PF 20 mg/2ml Vial SLOW IVP SCH (20:31)
[2019-05-23] MEDS: Lactated Ringer's 1,000 ML IV SCH (23:56)
[2019-05-24] MEDS: Cepastat Lozenges 1 LOZ PO PRN ×2 (01:16→04:17)
[2019-05-24 04:32] LABS: #Eosinphils 0.1 thou/uL (0.0-0.7); #Lymphocytes 0.7 thou/uL (1.20-3.40); #Monocytes 0.3 thou/uL (0.11-0.59); #Neutrophils 4.4 thou/uL (1.40-6.50); %Basophils 0.1 % (0.0-1.0); %Eosinophils 1.1 % (0.0-10.0); %Lymphocytes 13.4 % (21.0-51.0); %Monocytes 4.8 % (0.0-10.0); %Neutrophils 80.7 % (42.0-75.0); Hemoglobin 9.7 g/dL (12.0-16.0); Mean Corpuscular HGB CONC 35.9 g/dL (32.0-36.0); Mean Corpuscular Hemoglobin 36.6 pg (27.0-31.0); Mean Platelet Volume 8.4 fL (7.4-10.4); Platelet Count 163 thou/uL (130-400); RBC Distribution Width 15.9 % (11.5-14.5); Red Blood Cell (RBC) Count 2.64 mill/uL (4.20-5.40); White Blood Cell (WBC) Count 5.5 thou/uL (4.8-10.8)
[2019-05-24 04:37] LABS: Anion Gap 12 mmol/L (10-20); BUN (Urea Nitrogen) 18 mg/dL (9.8-20.1); Calc. Creatinine Clearance 91 mL/min (70-130); Calcium 8.8 mg/dL (7.8-10.44); Carbon Dioxide 22 mmol/L (23-31); Cardiac Risk 4.8 (Less than 4.5); Chloride 109 mmol/L (98-107); Cholesterol 178 mg/dl (< 200 Desired); Estimated GFR-MDRD Greater than 90; Glucose 98 mg/dL (80-115); HDL Cholesterol 37 mg/dL (>60 Neg Risk); LDL Cholesterol, Calculated 120 mg/dL; Potassium 3.5 mmol/L (3.5-5.1); Sodium 139 mmol/L (136-145); Triglycerides 105 mg/dL (Less than 150)
--- NOTE | 2019-05-24 05:51 | PDOC.FM ---
- Subjective Subjective: Patient states her chest pain is better. She c/o chest is tenderness to touch over the left mid chest. Pt denies any radiation of pain. Pt undergoes chemotherapy Taxol weekly on Wednesdays. Denies every being treated with radiation. Pt states CP uccurs at rest, not worsened by exertion. Denies any muscle strain, cramping or increased upper body activity. Pt c/o sore throat, scratchy in character. Pt does not complain of a headache or abdominal pain this morning. - Objective MAR Reviewed: Yes Vital Signs & Weight: Vital Signs (12 hours) Temp Pulse Resp BP Pulse Ox 05/24/19 04:00 98.2 F 78 18 147/63 H 97 05/24/19 03:19 98 05/23/19 23:02 98.1 F 67 14 95/46 L 98 05/23/19 19:53 99.1 F 80 16 163/67 H 98 Weight Weight 61.961 kg I&O: 05/22/19 05/23/19 05/24/19 06:59 06:59 06:59 Intake Total 1430 Balance 1430 Result Diagrams: 05/24/19 03:58 05/24/19 03:58 Phys Exam - Physical Examination Constitutional: NAD HEENT: PERRLA, moist MMs, sclera anicteric, oral pharynx no lesions Pharynx normal in appearance, no erythema or exudates. Neck: no nodes, no JVD, supple, full ROM Respiratory: no wheezing, no rales, no rhonchi, clear to auscultation bilateral Cardiovascular: RRR, no rub soft systolic murmur Diastolic murmur auscultated loudest over left sternum Gastrointestinal: soft, non-tender, no distention, positive bowel sounds Musculoskeletal: no edema, pulses present Neurological: non-focal, normal sensation, moves all 4 limbs Lymphatic: no nodes Psychiatric: normal affect, A&O x 3 Skin: no rash, normal turgor, cap refill <2 seconds Dx/Plan (1) Breast cancer Status: Acute (2) Atypical chest pain Code(s): R07.89 - OTHER CHEST PAIN Status: Acute (3) GERD (gastroesophageal reflux disease) Code(s): K21.9 - GASTRO-ESOPHAGEAL REFLUX DISEASE WITHOUT ESOPHAGITIS Status: Acute (4) Headache Code(s): R51 - HEADACHE Status: Acute (5) Hyperlipidemia Code(s): E78.5 - HYPERLIPIDEMIA, UNSPECIFIED Status: Acute (6) Hypertension Code(s): I10 - ESSENTIAL (PRIMARY) HYPERTENSION Status: Chronic - Plan Plan: 64 year old female admitted for ACS/ chest pain r/o: 1. Atypical chest pain - HEART score = 5 - D-dimer +, CTA negative for PE - Troponin x2 downtrended. - Pain not relieved by nitro. Not assoc w/ exertion. - A1C 5.4% - TSH normal, Magnesium1.6, phosphorus 2.7 - ECHO ordered - stress test ordered, Pt NPO - Holding hypertensive meds which are beta blockers - ASA 81 and statin - Gave pepcid to see if pt's symptoms may be attributable to GERD 2. Breast cancer, right breast - Pt under chemotherapy protocol, immunocompromised. - pt has sick contacts and current chemo, Strep testing negative - Cancer greatly contributes to Jd score which is 4. Will begin Lovenox tomorrow AM for VTE PPx. - Diagnosed in November 2018 - Quit smoking at that time - Taxol every Friday - Alopecia 2/2 chemotherapy 3. Headache - Clinically improved with tylenol 4. Abdominal pain, left sided - may be chronic in nature. - continue to monitor and treat pain, restarted home Tylenol 3 which was prescribed by oncologist - if no improvement, consider further workup 5. Hx of HTN - Holding B-otoniel for stress test - Continue losartan 6. Hx of High cholesterol - Statin therapy - Fasting Lipid Panel: A1C: Tri 105, T chol 178, CCL877, HDL 37 7. Hx Aortic regurgitation, severe - pt unsure of last ECHO or who her director of archives is - last ECHO her, EF WNL and showing the AR - ECHO ordered, as above 8. Hx of Insomnia - may continue hydroxyzine at night prn 9. Chronic constipation - continue linzess Code: FULL Consider palliative care consult, as pt was hesitant about what she wanted her code status to be. Chose to remain full code for now. Diet: Heart healthy. NPO midnight. VTE PPx: lovenox in AM GI PPx: pepcid Fluids: LR at midnight at 100ml/hr while NPO Disposition/LOS: Stable. Admit to telemetry, observation. Addendum - Attending - Attending Attestation Date/Time: 05/24/191912 I personally evaluated the patient and discussed the management with Dr. Cisneros. I agree with the History, Examination, Assessment and Plan documented above with any addition or exceptions noted below. Pt's chest pain is improved and she wants to go home. Will get echo and stress test. If stress is negative, she can d/c home and follow-up with echo results as an outpt.
[2019-05-24] MEDS: Acetaminophen/Codeine 30-300mg Tablet PO PRN (08:23)
[2019-05-24] MEDS ORDERED: FLUoxetine HCl 10 MG CAP PO SCH (09:00)
[2019-05-24] MEDS ORDERED: Enoxaparin Sodium 40 MG/0.4 ML SYRINGE SC SCH (09:00)
[2019-05-24] MEDS ORDERED: Losartan 25 MG TAB PO SCH (09:00)
[2019-05-24] MEDS ORDERED: (Linaclotide [Linzess] 1 TAB) PO SCH (09:00)
[2019-05-24] MEDS ORDERED: Aspirin 325 mg Enteric Coated Tablet PO SCH (09:00)
[2019-05-24] MEDS: Famotidine 20 MG TAB PO SCH (10:38)
[2019-05-24] MEDS: Famotidine/PF 20 mg/2ml Vial SLOW IVP SCH (10:39)
[2019-05-24] MEDS: cycloSPORINE 0.05% Ophthalmic Droperette EA EYE SCH (10:39)
[2019-05-24] MEDS ORDERED: ADENOSINE 60 MG/20 ML VIAL ONE (11:06)
--- NOTE | 2019-05-24 12:07 | NM ---
EXAM: NM Cardiac Stress W EF WF PROVIDED CLINICAL HISTORY: Chest pain COMPARISON: None RADIOPHARMACEUTICAL: 32 millicuries technetium 99m labeled sestamibi IV stress 28.1 millicuries technetium 99m labeled sestamibi IV rest FINDINGS: There is normal, homogeneous distribution of radiotracer throughout the left ventricular myocardium. Gated data demonstrate normal myocardial wall motion and thickening with calculated LVEF 55%. Calculated TID is 1.1. IMPRESSION: 1. No scintigraphic evidence for ischemia. 2. Calculated LVEF 55%.
[2019-05-24] MEDS: Lactated Ringer's 1,000 ML IV SCH (13:22)
[2019-05-24 15:47] VITALS: BP 163/69
[2019-05-24 16:55] VITALS: TEMP 98.3
[2019-05-24] MEDS ORDERED: Atorvastatin Calcium 40 MG TAB PO SCH (21:00)
--- NOTE | 2019-05-25 03:44 | DIS ---
DATE OF ADMISSION: 05/23/2019 DATE OF DISCHARGE: 05/24/2019 RESIDENT: Sherri Cisneros DO ADMITTING ATTENDING: Hector Hinojosa MD DISCHARGE ATTENDING: Dr. Clark CONSULTS: None. PROCEDURES PERFORMED: Nuclear medicine stress test which showed no significant defect. DIAGNOSES: 1. Atypical chest pain. 2. Breast cancer of the right breast, the patient is under chemotherapy protocol with immunocompromise. 3. Headache. 4. Abdominal pain. 5. History of hypertension. 6. History of high cholesterol. 7. History of aortic regurgitation. 8. History of insomnia. 9. Chronic constipation. DISCHARGE MEDICATIONS: 1. Tylenol No. 3 one tablet p.o. b.i.d. 2. Atorvastatin 40 mg p.o. at bedtime. 3. Tums 500 mg p.o. q.4 hours. 4. Pepcid 20 mg p.o. b.i.d. p.r.n. 5. Fluoxetine 10 mg p.o. daily. 6. Hydroxyzine 25 mg p.o. at bedtime. 7. Linzess one tab p.o. daily, 290 mcg. 8. Cozaar 25 mg p.o. daily. 9. Pantoprazole 40 mg p.o. daily. 10. Restasis 0.4 mL each eye b.i.d. 11. Tizanidine 4 mg p.o. b.i.d. 12. Carvedilol 3.125 mg p.o. b.i.d. HISTORY OF PRESENT ILLNESS/HOSPITAL COURSE: Nelda Maurice is a 64-year-old female with a history of breast cancer, undergoing weekly Taxol chemotherapy here for atypical chest pain. She had negative troponin. Fasting lipid panel showed triglycerides of 105, total cholesterol 178, LDL 120, HDL 37. A1c was 5.4%. Stress test showed no significant cardiovascular disease or sign of ischemia. Echo was taken, EF 50-55%, diastolic dysfunction, mild-miderate aortic regurgitation, thickened aortic valve leaflets. Her splicing supervisor is Dr. Yost. We will give results to Dr. Yost and recommend her to follow up with him in one week's time. The patient's chest pain gradually decreased throughout her hospital stay. She kept complaining of a sore throat. We added Pepcid b.i.d. to her GERD regimen. This helped with atypical chest pain as well as sore throat, most likely GERD like symptoms causing the chest pain. DISPOSITION: The patient was stable upon discharge and agreed with outpatient followup plan. DISCHARGE INSTRUCTIONS: 1. Location: Home. 2. Diet: Heart healthy. 3. Activity: As tolerated. 4. Followup: Follow up with primary care in one week's time and also with Dr. Yost, Cardiology, in one week's time to follow up on echo and further cardiac workup. Please send Echo results and Discharge summary to Dr. Yost, Credit Authorizer. Job ID: [id number] MTDD
--- NOTE | 2019-05-27 08:52 | STRESS ---
Acquisition Time: 2019-05-24 08:56:45 Total Exercise Time: 00:04:00 Test Indications: CHEST PAIN Medications: Protocol: ADENOSINE Max HR: 107 BPM 67% of Pred: 158 BPM Max BP: 150/050 mmHG Max Work Load: 1.0 METS RESTING ECG: NORMAL SINUS RHYTHM AT 78 BPM SYMPTOMS: DYSPNEA NORMAL BP RESPONSE ECTOPY: NONE ECG STRESS: NO SIGNIFICANT CHANGES INTERPRETATION: NEGATIVE ECG/AWAIT NUCLEAR IMAGES FOR DEFINITIVE DIAGNOSIS Confirmed by ZOHAIB HINTON ([id number]) on 05/27/2019 8:51:52 AM Referred By: MD Stacey HOLLAND Confirmed By:ZOHAIB HINTON
--- NOTE | 2019-05-29 14:42 | EKG ---
Test Reason : Blood Pressure : / mmHG Vent. Rate : 087 BPM Atrial Rate : 087 BPM P-R Int : 154 ms QRS Dur : 092 ms QT Int : 426 ms P-R-T Axes : 051 -20 080 degrees QTc Int : 512 ms Normal sinus rhythm Nonspecific T wave abnormality Prolonged QT Abnormal ECG Confirmed by CLINTON STEEL DO ([id number]), clinical editor EUNICE CEDILLO ([id number]) on 05/29/2019 2:42:00 PM Referred By: Confirmed By:CLINTON STEEL DO
--- NOTE | 2019-05-29 14:42 | EKG ---
Test Reason : ER INDICATION Blood Pressure : / mmHG Vent. Rate : 078 BPM Atrial Rate : 078 BPM P-R Int : 160 ms QRS Dur : 094 ms QT Int : 418 ms P-R-T Axes : 038 -14 066 degrees QTc Int : 476 ms Normal sinus rhythm Normal ECG Confirmed by CLINTON STEEL DO ([id number]), editorial assistant EUNICE CEDILLO ([id number]) on 05/29/2019 2:42:02 PM Referred By: Confirmed By:CLINTON STEEL DO
== END 2019-05-24 17:22 | disposition home or self-care (01) ==
LOC: ERS 09:11 → 2SW 12:17
PROVIDERS: ADMIT Student in an Organized Health Care Education/Training Program; ATTEND Student in an Organized Health Care Education/Training Program
DX: R07.89 Other chest pain (principal); I10 Essential (primary) hypertension; E78.00 Pure hypercholesterolemia, unspecified; G47.30 Sleep apnea, unspecified; F32.9 Major depressive disorder, single episode, unspecified; J06.9 Acute upper respiratory infection, unspecified; C50.911 Malignant neoplasm of unspecified site of right female breast; I35.1 Nonrheumatic aortic (valve) insufficiency; K59.09 Other constipation; K21.9 Gastro-esophageal reflux disease without esophagitis; E78.5 Hyperlipidemia, unspecified; Z87.891 Personal history of nicotine dependence; Z79.899 Other long term (current) drug therapy; Z88.0 Allergy status to penicillin
CPT/HCPCS: 71045; 71275; 78452; 80048; 80061; 82553; 83036; 83690; 83735; 84100; 84145; 84484 ×2; 85025; 85379; 87040; 87081; 87430; 93005; 93017; 93306; 94760 ×2; 97139 ×3; 99285; A9500; G0378 ×3; 36415; 80053; 84443; J0153; J1642; J1650; Q0162; Q9966; S0028

== ENCOUNTER 2019-05-26 09:23 | Day surgery (SDC) | payer MEDICARE, OTHER ==
[~2019-05-26 09:23] MED LIST changes: +Dexamethasone Sod Phosphate 4 MG, Ondansetron 2MG/ML MDV 10 MG in Sodium Chloride 0.9% ... IVPB SCH
[2019-05-26] MEDS ORDERED: FLU VACC QS2019-20(6MOS UP)/PF 60 MCG/0.5 ML SYRINGE IM ONE (10:15)
[2019-05-26 11:51] VITALS: BP 137/64; TEMP 98.5
[2019-05-26] MEDS ORDERED: Sodium Chloride 0.9% 20 ML ONE (12:15)
== END 2019-05-26 12:42 | disposition home or self-care (01) ==
LOC: ONC/OP 09:23
PROVIDERS: ATTEND Internal Medicine Hematology & Oncology
DX: Z51.11 Encounter for antineoplastic chemotherapy (principal); C50.211 Malignant neoplasm of upper-inner quadrant of right female breast; Z88.0 Allergy status to penicillin
CPT/HCPCS: 96375; 96413; J1100; J1642; J2405; J7050; J9267

== ENCOUNTER 2019-06-02 09:40 | Day surgery (SDC) | payer MEDICARE, OTHER ==
[~2019-06-02 09:40] MED LIST changes: -Dexamethasone Sod Phosphate 10 MG, Ondansetron 2MG/ML MDV 10 MG in Sodium Chloride 0.9%... IVPB SCH
[2019-06-02] MEDS ORDERED: Sodium Chloride 0.9% 20 ML ONE (09:44)
[2019-06-02 09:47] VITALS: BP 142/64; TEMP 98.6
== END 2019-06-02 11:48 | disposition home or self-care (01) ==
LOC: ONC/OP 09:40
PROVIDERS: ATTEND Internal Medicine Hematology & Oncology
DX: Z51.11 Encounter for antineoplastic chemotherapy (principal); C50.211 Malignant neoplasm of upper-inner quadrant of right female breast; Z17.1 Estrogen receptor negative status [ER-]; Z88.0 Allergy status to penicillin
CPT/HCPCS: 36415; 80053; 82248; 83615; 84100; 84550; 96375; 96413; J1100; J1642; J2405; J7050; J9267

== ENCOUNTER 2019-06-09 13:54 | Day surgery (SDC) | payer MEDICARE, OTHER ==
[2019-06-09 14:56] VITALS: BP 102/60; TEMP 99
== END 2019-06-09 15:35 | disposition home or self-care (01) ==
LOC: ONC/OP 13:54
PROVIDERS: ATTEND Internal Medicine Hematology & Oncology
DX: Z51.11 Encounter for antineoplastic chemotherapy (principal); C50.211 Malignant neoplasm of upper-inner quadrant of right female breast; Z88.0 Allergy status to penicillin
CPT/HCPCS: 96375; 96413; J1100; J2405; J7050; J9267

== ENCOUNTER 2019-06-16 11:02 | Day surgery (SDC) | payer MEDICARE, OTHER ==
[2019-06-16] MEDS ORDERED: Sodium Chloride 0.9% 20 ML ONE (11:43)
== END 2019-06-16 13:46 | disposition home or self-care (01) ==
LOC: ONC/OP 11:02
PROVIDERS: ATTEND Internal Medicine Hematology & Oncology
DX: Z51.11 Encounter for antineoplastic chemotherapy (principal); C50.211 Malignant neoplasm of upper-inner quadrant of right female breast; Z17.1 Estrogen receptor negative status [ER-]; Z88.0 Allergy status to penicillin
CPT/HCPCS: 96375; 96413; J1100; J1642; J2405; J7050; J9267

== ENCOUNTER 2019-06-23 09:28 | Day surgery (SDC) | payer MEDICARE, OTHER ==
[2019-06-23] MEDS ORDERED: Sodium Chloride 0.9% 20 ML ONE (09:47)
[2019-06-23 10:11] VITALS: BP 122/59; TEMP 98.1
== END 2019-06-23 13:57 | disposition home or self-care (01) ==
LOC: ONC/OP 09:28
PROVIDERS: ATTEND Internal Medicine Hematology & Oncology
DX: Z51.11 Encounter for antineoplastic chemotherapy (principal); C50.211 Malignant neoplasm of upper-inner quadrant of right female breast; Z17.1 Estrogen receptor negative status [ER-]; Z88.0 Allergy status to penicillin
CPT/HCPCS: 96375; 96413; J1100; J1642; J2405; J7050; J9267

== ENCOUNTER 2019-07-08 14:03 | Day surgery (SDC) | payer MEDICARE, OTHER ==
[~2019-07-08 14:03] MED LIST changes: +Dexamethasone 4 MG, Ondansetron 2MG/ML MDV 10 MG in Sodium Chloride 0.9% 50 ML SLOW IVP SCH
[2019-07-08 15:05] VITALS: BP 137/60; TEMP 98.1
== END 2019-07-08 16:27 | disposition home or self-care (01) ==
LOC: ONC/OP 14:03
PROVIDERS: ATTEND Internal Medicine Hematology & Oncology
DX: Z51.11 Encounter for antineoplastic chemotherapy (principal); C50.211 Malignant neoplasm of upper-inner quadrant of right female breast
CPT/HCPCS: 96375; 96413; J1100; J2405; J7050; J9267

== ENCOUNTER 2019-07-14 14:23 | Day surgery (SDC) | payer MEDICARE, OTHER ==
[~2019-07-14 14:23] MED LIST changes: -Dexamethasone 4 MG, Ondansetron 2MG/ML MDV 10 MG in Sodium Chloride 0.9% 50 ML SLOW IVP SCH
[2019-07-14] MEDS ORDERED: Sodium Chloride 0.9% 20 ML ONE (14:56)
[2019-07-14 15:13] VITALS: BP 147/65; TEMP 98.2
== END 2019-07-14 16:25 | disposition home or self-care (01) ==
LOC: ONC/OP 14:23
PROVIDERS: ATTEND Internal Medicine Hematology & Oncology
DX: Z51.11 Encounter for antineoplastic chemotherapy (principal); C50.211 Malignant neoplasm of upper-inner quadrant of right female breast; Z88.0 Allergy status to penicillin
CPT/HCPCS: 96375; 96413; J1100; J1642; J2405; J7050; J9267

== ENCOUNTER 2019-07-21 09:14 | Day surgery (SDC) | payer MEDICARE, OTHER ==
[2019-07-21 10:19] VITALS: BP 139/67; TEMP 98.5
[2019-07-21] MEDS ORDERED: Sodium Chloride 0.9% 20 ML ONE (10:39)
== END 2019-07-21 11:03 | disposition home or self-care (01) ==
LOC: ONC/OP 09:14
PROVIDERS: ATTEND Internal Medicine Hematology & Oncology
DX: Z51.11 Encounter for antineoplastic chemotherapy (principal); C50.211 Malignant neoplasm of upper-inner quadrant of right female breast; Z88.0 Allergy status to penicillin
CPT/HCPCS: 96375; 96413; J1100; J1642; J2405; J7050; J9267

== ENCOUNTER 2019-07-29 19:06 | Emergency (ER) | payer MEDICARE, OTHER | END 2019-07-29 19:57 | disposition home or self-care (01) | LOC: ERS 19:06 | DX: S20.211A Contusion of right front wall of thorax, initial encounter (principal); M19.90 Unspecified osteoarthritis, unspecified site; E78.5 Hyperlipidemia, unspecified; E78.00 Pure hypercholesterolemia, unspecified; I10 Essential (primary) hypertension; F41.9 Anxiety disorder, unspecified; F32.9 Major depressive disorder, single episode, unspecified; W18.30XA Fall on same level, unspecified, initial encounter | CPT/HCPCS: 99283 ==

== ENCOUNTER 2019-08-26 07:51 | Outpatient (CLI) | payer MEDICARE, OTHER ==
[2019-08-26 10:35] LABS: #Eosinphils 0.1 thou/uL (0.0-0.7); #Lymphocytes 1.8 thou/uL (1.20-3.40); #Monocytes 0.5 thou/uL (0.11-0.59); #Neutrophils 2.9 thou/uL (1.40-6.50); %Basophils 0.1 % (0.0-1.0); %Eosinophils 1.8 % (0.0-10.0); %Lymphocytes 33.6 % (21.0-51.0); %Monocytes 9.2 % (0.0-10.0); %Neutrophils 55.2 % (42.0-75.0); Hemoglobin 12.4 g/dL (12.0-16.0); Mean Corpuscular HGB CONC 33.9 g/dL (32.0-36.0); Mean Corpuscular Hemoglobin 34.3 pg (27.0-31.0); Mean Platelet Volume 9.1 fL (7.4-10.4); Platelet Count 195 thou/uL (130-400); RBC Distribution Width 13.3 % (11.5-14.5); Red Blood Cell (RBC) Count 3.62 mill/uL (4.20-5.40); White Blood Cell (WBC) Count 5.2 thou/uL (4.8-10.8)
[2019-08-26 10:45] LABS: Anion Gap 13 mmol/L (10-20); BUN (Urea Nitrogen) 21 mg/dL (9.8-20.1); Calc. Creatinine Clearance 0 mL/min (70-130); Calcium 9.3 mg/dL (7.8-10.44); Carbon Dioxide 22 mmol/L (23-31); Chloride 110 mmol/L (98-107); Estimated GFR-MDRD 86; Glucose 85 mg/dL (80-115); Potassium 3.6 mmol/L (3.5-5.1); Sodium 141 mmol/L (136-145)
== END 2019-08-26 07:52 | disposition home or self-care (01) ==
LOC: LABBT 07:51
PROVIDERS: ATTEND Surgery
DX: Z01.812 Encounter for preprocedural laboratory examination (principal); C50.911 Malignant neoplasm of unspecified site of right female breast
CPT/HCPCS: 80048; 85025

== ENCOUNTER 2019-08-27 08:21 | Day surgery (SDC) | payer MEDICARE, OTHER ==
[2019-08-26 08:41] VITALS: BMI 30.4
[2019-08-27] MEDS ORDERED: PROPOFOL 200 MG/20 ML VIAL ONE (10:28)
[2019-08-27] MEDS ORDERED: ePHEDrine/0.9% NaCl/PF SYRINGE 50 mg/10 ml ONE (10:28)
[2019-08-27] MEDS ORDERED: Lidocaine 1% PF 5 ML VIAL ONE (10:28)
[2019-08-27] MEDS ORDERED: Rocuronium Bromide 10 MG/ML (10ML VIAL) ONE (10:28)
[2019-08-27] MEDS ORDERED: PHENYLEPHRINE-NS 100 MCG/ML 10 ML SYRINGE ONE (10:28)
--- NOTE | 2019-08-27 12:06 | NM ---
NM Lymphoscintigraphy History: Malignant neoplasm of unspecified site of right female breast Comparison: None. Findings: Patient was brought to the nuclear medicine suite. All questions were answered. A total of 4 aliquots of 0.44 mCi technetium 99m sulfur colloid were instilled into the periareolar s oft tissues on the right. No radiotracer uptake is seen within the axilla or internal mammary fantasma chains. Impression: No radiotracer uptake seen within the axillary or internal mammary fantasma chains. This may be due to lack of soft tissue massage which usually instills the radiotracer further into the soft tissues and lymph system.
[2019-08-27] MEDS ORDERED: Sodium Chloride 0.9% 10 ML ONE ×2 (12:10→18:58)
[2019-08-27] MEDS ORDERED: Levofloxacin 500 mg/D5W 100 ml Premix Bag ONE (12:37)
[2019-08-27] MEDS ORDERED: EPINEPHrine 1 MG/ML AMP ONE ×2 (13:34→16:10)
[2019-08-27] MEDS ORDERED: Isosulfan Blue 50 MG/5 ML VIAL ONE (13:34)
[2019-08-27] MEDS ORDERED: Bupivacaine 0.25% HCL 30 ML VIAL ONE ×2 (13:34→16:10)
[2019-08-27] MEDS ORDERED: Midazolam HCl 2 mg/2 ml Vial ONE (13:36)
[2019-08-27] MEDS ORDERED: Fentanyl 100 MCG/2 ML VIAL ONE ×2 (13:36→17:09)
[2019-08-27] MEDS ORDERED: HYDROmorphone 0.5 MG/0.5 ML SYRINGE ONE (13:36)
[2019-08-27] MEDS ORDERED: Lidocaine 2% Jelly 5 ML TUBE ONE (13:36)
--- NOTE | 2019-08-27 16:48 | MMO ---
Surgical specimen mammography HISTORY: Breast cancer. FINDINGS: Mammographic evaluation of the surgical specimen obtained by Dr. Simmons shows the localiza tion clip, hyperdense mass and a portion of the localization wire overlying the soft tissue specimen. Results were called to Dr. Smimons in OR-Bat 1642 hours.
[2019-08-27] MEDS ORDERED: HYDROcodone/Acetaminophen 5/325 mg Tablet ONE (17:39)
--- NOTE | 2019-09-01 15:41 | PDOC.OP ---
Operative Note - Operative Note Operative Note: PROCEDURE: Right breast lumpectomy with ultrasound-guided wire localization, and sentinel lymph node biopsy SURGEON: Rojelio Simmons M.D. DATE: 08/27/2019 PREOPERATIVE DIAGNOSIS: Right breast cancer POSTOPERATIVE DIAGNOSIS: Right breast cancer HISTORY: Patient with right breast cancer status post neoadjuvant chemotherapy. The mass is now about 1 cm in diameter and the patient has chosen to proceed with lumpectomy with sentinel lymph node biopsy. Lymphoscintigraphy did not show any uptake in the internal mammary or the axillary nodes, so the patient was also consented for possible axillary dissection in the event that sentinel lymph nodes could not be identified. PROCEDURE IN DETAIL: After informed consent was obtained the patient was taken to the operating room and placed in the supine position. General anesthesia was administered and the breast was prepped with alcohol and lymphazurin injected subdermally behind the nipple. The breast was massaged for 5 minutes, and then the patient was positioned, prepped and draped. Local anesthesia was infused to the lower edge of the hairbearing skin of the axilla. The skin was incised and dissection carried down to the axilla. On careful examination of the axilla with neoprobe, no definite areas of increased activity could be identified. Therefore the decision was made to proceed with axillary dissection. Vein was identified and cleared anteriorly and the axillary contents swept off of the chest wall proceeding downward. As this was proceeding, a blue-appearing lymph node was identified. This does not have increased activity but was excised and sent as sentinel lymph node #1. Careful probing of the area around this lymph node revealed 2 additional lymph nodes which clearly had lymphazurin vein lymphatics draining into them. The largest of the lymph nodes was excised and had a increased count of 51. Another area with increased activity and a blue lymphatic draining into it was identified and excised. This was tiny and had an increased activity count of 12. Axilla was examined and palpated and no other palpable abnormal nodes nor areas of increased activity were found, nor any other lymph nodes tracing back to blue lymphatics. Since 3 lymph nodes up and identified the decision was made not to proceed with axillary dissection. The wound was irrigated and hemostasis verified. Additional local anesthesia was infused for postoperative pain control and the subcutaneous tissues were reapproximated with 3-0 Monocryl suture and the skin closed with 4-0 Monocryl suture. Attention was then turned to the lumpectomy. The mass in the left lateral breast was identified by palpation and ultrasound. A wire was placed into the mass under direct ultrasound guidance. The margins of the mass were marked on the overlying skin and a periareolar incision made. Flaps were raised in all directions and dissection was then carried down around the wire circumferentially to below the level of the mass. The tissues deep to the mass were then transected and the specimen was removed and marked for orientation with a long lateral, short superior, and looped superficial suture. It was sent for specimen mammogram which showed presence of the clip, mass, and wire within the specimen. The wound was irrigated and hemostasis obtained using Bovie electrocautery. Additional local anesthesia was infused circumferentially for postoperative pain control. The subcutaneous tissues were reapproximated with a running 3-0 Monocryl suture and additional local anesthesia infused into the biopsy cavity. The skin was then closed with a running 4-0 subcuticular Monocryl suture. Dermabond dressings were placed to both incisions and once this was dry, fluffs compression dressings were placed and secured to the skin with tape. The patient was extubated and taken to the recovery room in good condition. Estimated blood loss was minimal. There were no complications. Specimens are sentinel lymph nodes 3 and right breast mass.
== END 2019-08-27 19:00 | disposition home or self-care (01) ==
LOC: SDC 08:21
PROVIDERS: ATTEND Surgery
PROC: 0HBT0ZZ Excision of Right Breast, Open Approach (ICD-10-PCS; principal; 2019-08-27)
PROC: 07B50ZX Excision of Right Axillary Lymphatic, Open Approach, Diagnostic (ICD-10-PCS; 2019-08-27)
DX: C50.811 Malignant neoplasm of overlapping sites of right female breast (principal); C77.9 Secondary and unspecified malignant neoplasm of lymph node, unspecified; M06.9 Rheumatoid arthritis, unspecified; I10 Essential (primary) hypertension; E78.00 Pure hypercholesterolemia, unspecified; M19.90 Unspecified osteoarthritis, unspecified site; M51.9 Unspecified thoracic, thoracolumbar and lumbosacral intervertebral disc disorder; F32.9 Major depressive disorder, single episode, unspecified; Z87.891 Personal history of nicotine dependence; Z17.1 Estrogen receptor negative status [ER-]; Z79.899 Other long term (current) drug therapy; Z88.0 Allergy status to penicillin; Z98.1 Arthrodesis status
CPT/HCPCS: 19301; 38525; 38900; 76098; 78195; A9541; Q9968; 88305; 88307; 88333; 88342; J0171; J1170; J1642; J1956; J2001; J2250; J2704; J3010; S0020

== ENCOUNTER 2022-10-10 09:12 | Outpatient (CLI) | payer MEDICARE, OTHER | END 2022-10-10 09:13 | disposition home or self-care (01) | LOC: BICMAMMO 09:12 | PROVIDERS: ATTEND Specialist | DX: C50.911 Malignant neoplasm of unspecified site of right female breast (principal); R92.1 Mammographic calcification found on diagnostic imaging of breast | CPT/HCPCS: 76642; 77066; G0279 ==

== ENCOUNTER 2022-12-26 09:16 | Outpatient (CLI) | payer MEDICARE | END 2022-12-26 09:17 | disposition home or self-care (01) | LOC: EDBD → BICRAD 09:16 | PROVIDERS: ATTEND Family Medicine | DX: M54.16 Radiculopathy, lumbar region (principal); Z98.1 Arthrodesis status | CPT/HCPCS: 72100 ==

== ENCOUNTER 2023-04-09 12:41 | Outpatient (CLI) | payer MEDICARE | END 2023-04-09 12:42 | disposition home or self-care (01) | LOC: BICMAMMO 12:41 | PROVIDERS: ATTEND Specialist | DX: Z98.890 Other specified postprocedural states (principal) | CPT/HCPCS: 77065; G0279 ==

== ENCOUNTER 2023-06-30 01:27 | Emergency (ER) | payer MEDICARE ==
[2023-06-30] MEDS ORDERED: Nitroglycerin 0.4 MG TAB 1 EACH ONE (02:11)
[2023-06-30] MEDS ORDERED: Aspirin Chewable 81 MG TAB ONE (02:11)
[2023-06-30 03:07] LABS: #Eosinphils 0.1 thou/uL (0.0-0.7); #Monocytes 0.5 thou/uL (0.11-0.59); #Neutrophils 2.7 thou/uL (1.40-6.50); %Basophils 0.6 % (0.0-1.0); %Eosinophils 1.7 % (0.0-10.0); %Lymphocytes 40.6 % (21.0-51.0); %Monocytes 8.3 % (0.0-10.0); %Neutrophils 48.6 % (42.0-75.0); Hemoglobin 13.3 g/dL (12.0-16.0); Mean Corpuscular Hemoglobin 34.7 pg (27.0-31.0); Mean Corpuscular Volume 99.2 fl (78.0-98.0); Mean Platelet Volume 10.8 fL (7.4-10.4); Platelet Count 204 10x3/uL (130-400); RBC Distribution Width 13.2 % (11.5-14.5); Red Blood Cell (RBC) Count 3.83 mill/uL (4.20-5.40); White Blood Cell (WBC) Count 5.5 10x3/uL (4.8-10.8)
[2023-06-30 03:18] LABS: Amphetamine Not Detected (NotDetected); Barbiturates Screen Not Detected (NotDetected); Benzodiazepine Screen Not Detected (NotDetected); Cocaine Metabolite Screen Not Detected (NotDetected); Methadone Not Detected (NotDetected); Methamphetamine Not Detected (NotDetected); Opiate Screen Not Detected (NotDetected); Oxycodone Screen Not Detected (NotDetected); Phencyclidine (PCP) Not Detected (NotDetected); THC/Cannabinoid Screen Not Detected (NotDetected); Tricyclic Screen Not Detected (NotDetected)
[2023-06-30 03:30] LABS: Bacteria/HPF None Seen HPF (None Seen); Bilirubin Negative (Negative); Blood, Urine Negative (Negative); CAUTI Indications for Culture Alt mental st,lethar; Clarity Clear (Clear); Glucose, Urine (Dipstick) Normal (Negative); Ketone, Urine Negative (Negative); Leukocyte 25 Leu/uL (Negative); Nitrite Negative (Negative); Protein, Urine (Dipstick) Negative (Neg-Trace); RBC/HPF 0-3 HPF (0-3); Specific Gravity, Urine 1.005 (1.002-1.036); Squamous Epithelial 0-3 HPF (0-3); Urobilinogen Normal mg/dL (Less than 2); WBC/HPF 0-3 HPF (0-3)
[2023-06-30 03:32] LABS: Troponin I 0.019 ng/mL (< 0.028)
[2023-06-30 03:33] LABS: Urine Culture Reflex No No
[2023-06-30 03:35] LABS: ALT (SGPT) 17 U/L (8-55); AST (SGOT) 18 U/L (5-34); Albumin 4.2 g/dL (3.4-4.8); Alcohol 201.4 mg/dL (Less than 10); Alkaline Phosphatase 86 U/L (40-110); Anion Gap 14 mmol/L (10-20); BUN (Urea Nitrogen) 15 mg/dL (9.8-20.1); Bilirubin, Total 0.2 mg/dL (0.2-1.2); Calc. Creatinine Clearance 0 mL/min (70-130); Calcium 9.3 mg/dL (7.8-10.44); Carbon Dioxide 20 mmol/L (23-31); Chloride 114 mmol/L (98-107); Estimated GFR 96; Globulin 2.3 g/dL (2.4-3.5); Glucose 107 mg/dL (80-115); Lipase 42 U/L (8-78); Magnesium 1.9 mg/dL (1.6-2.6); Potassium 3.5 mmol/L (3.5-5.1); Protein, Total 6.5 g/dL (5.8-8.1); Sodium 144 mmol/L (136-145)
[2023-06-30 08:29] LABS: Troponin I 0.013 ng/mL (< 0.028)
[2023-06-30] MEDS ORDERED: Iopamidol-370 76% 500 ML MDV (1 ML CHARGE) ONE (14:34)
== END 2023-06-30 10:14 | disposition home or self-care (01) ==
LOC: ERS 01:27
DX: R07.89 Other chest pain (principal); E78.00 Pure hypercholesterolemia, unspecified; I10 Essential (primary) hypertension
CPT/HCPCS: 36415; 71045; 71275; 74174; 80053; 80306; 80307; 81001; 83690; 83735; 83880; 84484; 85025; 85379; 93005; Q9967

== ENCOUNTER 2024-06-23 13:14 | Outpatient (CLI) | payer OTHER | END 2024-06-23 13:15 | disposition home or self-care (01) | LOC: BICMAMMO 13:14 | PROVIDERS: ATTEND Internal Medicine Hematology & Oncology | DX: Z08 Encounter for follow-up examination after completed treatment for malignant neoplasm (principal); Z85.3 Personal history of malignant neoplasm of breast | CPT/HCPCS: 77066; G0279 ==